=== PATIENT | female | born 1990 | race Caucasian/White ===

== ENCOUNTER 2016-12-25 18:39 | Emergency (ER) | payer OTHER ==
[~2016-12-25 18:39] MED LIST: ALBUTEROL HFA60 DOSE IN; KEFLEX500 M1 PO; PERCOCET1 TA1 PO; PRENATAL1 TAB PO
--- NOTE | 2016-12-25 20:06 | ED CLINICAL REPORT ---
Clinical Report - Physicians/Mid Levels [facility] [address] [place] [address] 12/25/2016 18:38 Patient: SOLOMON GUEVARA Time Seen: 19:57. Arrived- By private vehicle. Historian- patient. HISTORY OF PRESENT ILLNESS Chief Complaint: DENTAL PAIN. TOOTHACHE and SWELLING OF JAW / FACE sched w/ dentist in [place]. This started 1 weeks ago and is still present. Pain described as severe. The patient has had toothache. Similar symptoms previously: Several times, milder. Recent medical care: Not recently seen/assessed. REVIEW OF SYSTEMS No fever, difficulty breathing, nausea or enlarged lymph nodes. She has had a headache. PAST HISTORY See nurses notes. No history of hypertension or diabetes mellitus. Surgeries: . Cholecystectomy. Medications: PROzac Oral. Albuterol Sulfate Inhalation 2 puffs, PRN. Allergies: Ibuprofen.(angioedema). SOCIAL HISTORY Light tobacco smoker (cigarette)- less than 1/2 a pack per day. History of drug use: marijuana. No alcohol use. ADDITIONAL NOTES The nursing notes have been reviewed. PHYSICAL EXAM Vital Signs: 12/25/2016 19:36 BP: 128/78. HR: 88. RR: 18. O2 saturation: 99%. Temp: 98.4 F. Have been reviewed and appear to be correct. Appearance: Alert. No acute distress. Head: Normal external inspection. Eyes: Pupils equal, round and reactive to light. Conjunctivae and eyelids normal. ENT: Dental decay. Severe dental tenderness of a single tooth with gingival tenderness (upper left first molar) ((hole in tooth-filling missing)). Nose normal. Pharynx normal. Lips normal. No trismus present. Uvula midline. Neck: Normal inspection. Trachea midline. No adenopathy. Neck supple. No meningeal signs. CVS: Normal heart rate and rhythm. Respiratory: No respiratory distress. Breath sounds normal. Skin: Normal skin color. No rash. Normal skin turgor. Neuro: Oriented X 3. CLINICAL IMPRESSION Moderate dental pain. INSTRUCTIONS Drink plenty of fluids. Follow a soft diet. Warnings: CONTROLLED SUBSTANCE WARNINGS: The reason for controlled substance is related to an acute illness. Discussed warnings with the patient. GENERAL WARNINGS: Return or contact your physician immediately if your condition worsens or changes unexpectedly, if not improving as expected, or if other problems arise. Prescription monitor program consulted. (no narcotic rx's this year; no care plan re this). Prescription Medications: Hydrocodone/APAP 5mg / 325mg: take 1 orally every 6 hours as needed for pain. Dispense ten (10). No refill. Penicillin V 500 mg: take 1 tab orally every 6 hours for 10 days. No refills. Follow-up: Follow up with a specialist even if well. Call for the next available appointment. Reason for referral: call dentist AMANDA. Summary of care provided to patient. Understanding of the discharge instructions verbalized by patient. (Electronically signed by Amee Patel A.R.N.P. 12/25/2016 23:17)
--- NOTE | 2016-12-25 20:06 | ED NURSING NOTES ---
Clinical Report - Nurses [facility] [address] [place] [address] 12/25/2016 18:38 Patient: SOLOMON GUEVARA TRIAGE Triage time 1937. Acuity: LEVEL 4. Chief Complaint: LEFT UPPER TOOTHACHE and CHIPPED TOOTH. --19:41 Rio Erazo R.N. 19:36 12/25/16. BP: 128/78. HR: 88. RR: 18. O2 saturation: 99%. Temp: 98.4 F. Pain level now 08/02. --19:41 Rio Erazo R.N. Weight: 81.6 kg stated. Height/Length: 59 inches Per Patient. BMI: 36.4. --19:41 Rio Erazo R.N. Medications Albuterol Sulfate Inhalation 2 puffs, PRN. --19:38 Rio Erazo R.N. PROzac Oral. --19:39 Rio Erazo R.N. Allergies Ibuprofen.(angioedema) --19:38 Rio Erazo R.N. History Arrived by private vehicle. Historian: patient. Unaccompanied. Onset. (about 1 weeks ago). She has no dental appointment scheduled. 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 PAST MEDICAL HX: Immunizations: status is unknown. SOCIAL HX: Light tobacco smoker- less than 1/2 a pack per day. History of occasional drug use: marijuana. No alcohol use. FALL RISK ASSESSMENT: Fall risk assessment completed. No fall risk identified. NUTRITIONAL RISK ASSESSMENT: The nutritional risk assessment revealed no deficiencies. FUNCTIONAL ASSESSMENT: Functional assessment: no impairments noted. LEARNING NEEDS ASSESSMENT: The learning needs assessment revealed no barriers. SKIN INTEGRITY ASSESSMENT: Skin integrity risk assessment completed. No skin integrity risk identified. --19:41 Rio Erazo R.N. PROBLEMS: Depression. Torticollis. Neck Pain. Bronchitis. Dental Pain. UTI - Urinary Tract Infection. Headache. Developmental Delay. Asthma. --19:39 Rio Erazo R.N. ADDITIONAL SURGERIES: Cholecystectomy. . Traumatic brain injury. --19:39 Rio Erazo R.N. Interventions ID band on patient. --19:41 Rio Erazo R.N. PHYSICAL ASSESSMENT Ambulatory to room. GENERAL / NEURO / PSYCH: Alert. Oriented X 4. Appears in no acute distress. HEENT: Pupils equal, round and reactive to light. Pharynx within normal limits. Voice within normal limits. Dental tenderness. Dental decay. Mucous membranes are pink. RESPIRATORY: Respirations not labored. CVS: Capillary refill less than 2 seconds. SKIN: Skin is warm and dry. Normal skin turgor. --19:41 Rio Erazo R.N. NURSING PROGRESS NOTES Cold pack applied. Head of bed elevated. Reassurance given. Patient identifiers checked. Call light placed in reach. Bed placed in lowest position. Brakes of bed on. --19:41 Rio Erazo R.N. DISPOSITION / DISCHARGE Departure time: 2014. Condition at departure: improved. No learning barriers present. Discharge instructions provided and reviewed with the patient. Reviewed warnings. Reviewed medication(s). Treatments reviewed. Reviewed referrals. Reviewed diet. Activity restrictions reviewed. Patient verbalized understanding. Written instructions provided in [place]er. The patient was discharged by the physician. She was discharged home and unaccompanied at time of discharge. She left the Emergency Department ambulatory and via private vehicle. [employer] driving. --20:16 Rio Erazo R.N. 20:15 12/25/16. BP: 127/77. HR: 77. RR: 16. O2 saturation: 99%. Temp: 98 F. Pain level now 1010. --20:16 Rio Erazo R.N. Locked/Released at 12/25/2016 20:17 by Rio Erazo R.N.
--- NOTE | 2016-12-25 20:06 | ED CLINICAL REPORT ---
Clinical Report - Physicians/Mid Levels [facility] [address] [place] [address] 12/25/2016 18:38 Patient: SOLOMON GUEVARA Time Seen: 19:57. Arrived- By private vehicle. Historian- patient. HISTORY OF PRESENT ILLNESS Chief Complaint: DENTAL PAIN. TOOTHACHE and SWELLING OF JAW / FACE sched w/ dentist in [place]. This started 1 weeks ago and is still present. Pain described as severe. The patient has had toothache. Similar symptoms previously: Several times, milder. Recent medical care: Not recently seen/assessed. REVIEW OF SYSTEMS No fever, difficulty breathing, nausea or enlarged lymph nodes. She has had a headache. PAST HISTORY See nurses notes. No history of hypertension or diabetes mellitus. Surgeries: . Cholecystectomy. Medications: PROzac Oral. Albuterol Sulfate Inhalation 2 puffs, PRN. Allergies: Ibuprofen.(angioedema). SOCIAL HISTORY Light tobacco smoker (cigarette)- less than 1/2 a pack per day. History of drug use: marijuana. No alcohol use. ADDITIONAL NOTES The nursing notes have been reviewed. PHYSICAL EXAM Vital Signs: 12/25/2016 19:36 BP: 128/78. HR: 88. RR: 18. O2 saturation: 99%. Temp: 98.4 F. Have been reviewed and appear to be correct. Appearance: Alert. No acute distress. Head: Normal external inspection. Eyes: Pupils equal, round and reactive to light. Conjunctivae and eyelids normal. ENT: Dental decay. Severe dental tenderness of a single tooth with gingival tenderness (upper left first molar) ((hole in tooth-filling missing)). Nose normal. Pharynx normal. Lips normal. No trismus present. Uvula midline. Neck: Normal inspection. Trachea midline. No adenopathy. Neck supple. No meningeal signs. CVS: Normal heart rate and rhythm. Respiratory: No respiratory distress. Breath sounds normal. Skin: Normal skin color. No rash. Normal skin turgor. Neuro: Oriented X 3. CLINICAL IMPRESSION Moderate dental pain. INSTRUCTIONS Drink plenty of fluids. Follow a soft diet. Warnings: CONTROLLED SUBSTANCE WARNINGS: The reason for controlled substance is related to an acute illness. Discussed warnings with the patient. GENERAL WARNINGS: Return or contact your physician immediately if your condition worsens or changes unexpectedly, if not improving as expected, or if other problems arise. Prescription monitor program consulted. (no narcotic rx's this year; no care plan re this). Prescription Medications: Hydrocodone/APAP 5mg / 325mg: take 1 orally every 6 hours as needed for pain. Dispense ten (10). No refill. Penicillin V 500 mg: take 1 tab orally every 6 hours for 10 days. No refills. Follow-up: Follow up with a specialist even if well. Call for the next available appointment. Reason for referral: call dentist AMANDA. Summary of care provided to patient. Understanding of the discharge instructions verbalized by patient. (Electronically signed by Amee Patel A.R.N.P. 12/25/2016 23:17)
--- NOTE | 2016-12-25 20:06 | ED NURSING NOTES ---
Clinical Report - Nurses Merged With [facility] [address] [place] [address] 12/25/2016 18:38 Patient: SOLOMON GUEVARA TRIAGE Triage time 1939. Acuity: LEVEL 4. Chief Complaint: LEFT UPPER TOOTHACHE and CHIPPED TOOTH. --19:41 Rio Erazo R.N. 19:36 12/25/16. BP: 128/78. HR: 88. RR: 18. O2 saturation: 99%. Temp: 98.4 F. Pain level now 08/02. --19:41 Rio Erazo R.N. Weight: 81.6 kg stated. Height/Length: 59 inches Per Patient. BMI: 36.4. --19:41 Rio Erazo R.N. Medications Albuterol Sulfate Inhalation 2 puffs, PRN. --19:38 Rio Erazo R.N. PROzac Oral. --19:39 Rio Erazo R.N. Allergies Ibuprofen.(angioedema) --19:38 Rio Erazo R.N. History Arrived by private vehicle. Historian: patient. Unaccompanied. Onset. (about 1 weeks ago). She has no dental appointment scheduled. 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 PAST MEDICAL HX: Immunizations: status is unknown. SOCIAL HX: Light tobacco smoker- less than 1/2 a pack per day. History of occasional drug use: marijuana. No alcohol use. FALL RISK ASSESSMENT: Fall risk assessment completed. No fall risk identified. NUTRITIONAL RISK ASSESSMENT: The nutritional risk assessment revealed no deficiencies. FUNCTIONAL ASSESSMENT: Functional assessment: no impairments noted. LEARNING NEEDS ASSESSMENT: The learning needs assessment revealed no barriers. SKIN INTEGRITY ASSESSMENT: Skin integrity risk assessment completed. No skin integrity risk identified. --19:41 Rio Erazo R.N. PROBLEMS: Depression. Torticollis. Neck Pain. Bronchitis. Dental Pain. UTI - Urinary Tract Infection. Headache. Developmental Delay. Asthma. --19:39 Rio Erazo R.N. ADDITIONAL SURGERIES: Cholecystectomy. . Traumatic brain injury. --19:39 Rio Erazo R.N. Interventions ID band on patient. --19:41 Rio Erazo R.N. PHYSICAL ASSESSMENT Ambulatory to room. GENERAL / NEURO / PSYCH: Alert. Oriented X 4. Appears in no acute distress. HEENT: Pupils equal, round and reactive to light. Pharynx within normal limits. Voice within normal limits. Dental tenderness. Dental decay. Mucous membranes are pink. RESPIRATORY: Respirations not labored. CVS: Capillary refill less than 2 seconds. SKIN: Skin is warm and dry. Normal skin turgor. --19:41 Rio Erazo R.N. NURSING PROGRESS NOTES Cold pack applied. Head of bed elevated. Reassurance given. Patient identifiers checked. Call light placed in reach. Bed placed in lowest position. Brakes of bed on. --19:41 Rio Erazo R.N. DISPOSITION / DISCHARGE Departure time: 2014. Condition at departure: improved. No learning barriers present. Discharge instructions provided and reviewed with the patient. Reviewed warnings. Reviewed medication(s). Treatments reviewed. Reviewed referrals. Reviewed diet. Activity restrictions reviewed. Patient verbalized understanding. Written instructions provided in Gibral[place]arian. The patient was discharged by the physician. She was discharged home and unaccompanied at time of discharge. She left the Emergency Department ambulatory and via private vehicle. [employer] driving. --20:16 Rio Erazo R.N. 20:15 12/25/16. BP: 127/77. HR: 77. RR: 16. O2 saturation: 99%. Temp: 98 F. Pain level now 1010. --20:16 Rio Erazo R.N. Locked/Released at 12/25/2016 20:17 by Rio Erazo R.N.
--- NOTE | 2016-12-25 23:17 | ED DISCHARGE INSTRUCTIONS ---
Patient: SOLOMON GUEVARA General Instructions [facility] VisitID: [id number] [place] [address] 26y, F Registration Date/Time: 12/25/2016 Moderate dental pain. INSTRUCTIONS Drink plenty of fluids. Follow a soft diet. Warnings: CONTROLLED SUBSTANCE WARNINGS: The reason for controlled substance is related to an acute illness. Discussed warnings with the patient. GENERAL WARNINGS: Return or contact your physician immediately if your condition worsens or changes unexpectedly, if not improving as expected, or if other problems arise. Prescription monitor program consulted. (no narcotic rx's this year; no care plan re this). Prescription Medications: Hydrocodone/APAP 5mg / 325mg: take 1 orally every 6 hours as needed for pain. Dispense ten (10). No refill. Penicillin V 500 mg: take 1 tab orally every 6 hours for 10 days. No refills. Follow-up: Follow up with a specialist even if well. Call for the next available appointment. Reason for referral: call dentist AMANDA. Summary of care provided to patient. Understanding of the discharge instructions verbalized by patient. ADDITIONAL INFORMATION Dental Pain A crack or cavity in the tooth, which exposes the sensitive inner area of the tooth can cause tooth pain. An infection in the gum or the root of the tooth can cause pain and swelling. The pain is often made worse by drinking hot or cold fluids, or biting on hard foods. Pain may spread from the tooth to the ear or jaw on the same side. Home Care: Avoid hot and cold foods and liquids since your tooth may be sensitive to temperature changes. If your tooth is chipped or cracked, or if there is a large open cavity, apply OIL OF CLOVES (available dash-yne-jjcvtib in drug stores) directly to the tooth to reduce pain. Some pharmacies carry an wnum-zlf-hutymbr "toothache kit." This contains a paste, which can be applied over the exposed tooth to decrease sensitivity. A cold pack on your jaw over the sore area may help reduce pain. You may use acetaminophen (Tylenol) or ibuprofen (Motrin, Advil) to control pain, unless another medicine was prescribed. [ NOTE: If you have chronic liver or kidney disease or ever had a stomach ulcer or GI bleeding, talk with your doctor before using these medicines.] If you have signs of an infection, an antibiotic will be given. Take it as directed. Follow-Up as directed with a dentist. Your pain may go away with the treatment given. However, only a dentist can fully evaluate and treat the cause and prevent the pain from coming back again. TOOTHACHE IS A SIGN OF DISEASE IN YOUR TOOTH AND SHOULD BE EXAMINED AND TREATED BY A DENTIST. Get Prompt Medical Attention if any of the following occur: Your face becomes swollen or red Pain worsens or spreads to the neck Fever over 100.4 F (38.0 C) Unusual drowsiness; headache or stiff neck; weakness or fainting Pus drains from the tooth Difficulty swallowing or breathing Dental Cavity A dental cavity is a pit or crater in the enamel surface of the tooth. This exposes the sensitive inner layer of the tooth and causes pain. If untreated, the cavity will get bigger and may cause an infection or abscess in the root of the tooth. An infection in the tooth is a much more serious problem and may require a root canal or removal of the entire tooth. The tooth pain may be made worse by drinking hot or cold fluids. It may spread from the tooth to the ear or jaw on the same side. Home Care: Avoid hot and cold foods, and liquids since your tooth may be sensitive to temperature changes. If your tooth is chipped or cracked, or if there is a large open cavity, apply OIL OF CLOVES (available qkws-cnu-mpnkcit in drug stores) directly to the tooth to reduce pain. Some pharmacies carry an fksv-eca-hddxguh "toothache kit." This contains oil of cloves and a paste, which can be applied over the exposed tooth to decrease sensitivity. An ice pack on your jaw over the sore area may help to reduce pain. You may use acetaminophen (Tylenol) or ibuprofen (Motrin, Advil) to control pain, unless another pain medicine was prescribed. [ NOTE: If you have liver disease or ever had a stomach ulcer, talk with your doctor before using these medicines.] If you have signs of an infection, an antibiotic will be given. Take it as directed. Follow-Up with your dentist as directed. Although your pain may go away with the treatment given, only a dentist can fully evaluate and treat this problem to prevent further tooth damage. Get Prompt Medical Attention if any of the following occur: Redness or swelling of the face Pain worsens or spreads to the neck Fever over 100.5 F (38C) Unusual drowsiness; headache or stiff neck; weakness or fainting Pus drains from the tooth or gum Difficulty swallowing or breathing You have been given the following additional information: Dental Pain Dental Cavity (Electronically signed by Amee Patel A.R.N.P. 12/25/2016 23:17)
--- NOTE | 2016-12-25 23:17 | ED MAR SUMMARY ---
..... Medication Administration Record [facility] [address], [place] [id number] Patient: SOLOMON GUEVARA Visit ID: [id number] 26y, F Weight: 81.6 kg Height/Length: 59 in BMI: 36.4 ALLERGIES: Ibuprofen
--- NOTE | 2016-12-25 23:17 | ED MAR SUMMARY ---
..... Medication Administration Record [facility] [address] [place], [place] [id number] Patient: SOLOMON GUEVARA Visit ID: [id number] 26y, F Weight: 81.6 kg Height/Length: 59 in BMI: 36.4 ALLERGIES: Ibuprofen
--- NOTE | 2016-12-25 23:17 | ED MED RECONCILIATION SUMMARY ---
Patient: SOLOMON GUEVARA Medication Reconciliation Report [facility] VisitID: [id number] [address] [place] [address] 26y, F Registration Date/Time: 12/25/2016 Weight: 81.6 kg Height/Length: 59 in. BMI: 36.4 ALLERGIES: Ibuprofen The patient's Home Medications are listed below: THE FOLLOWING MEDICATIONS NEED TO BE RECONCILED: Albuterol Sulfate Inhalation 2 puffs, PRN PROzac Oral The source(s) of the original Home Medication information: Not obtained. The following Medications were given to the patient in the Emergency Department: None. The following Medications were prescribed to the patient: Hydrocodone/APAP 5mg / 325mg: take 1 orally every 6 hours as needed for pain. Dispense ten (10). No refill. -- Amee Patel A.R.N.P. Penicillin V 500 mg: take 1 tab orally every 6 hours for 10 days. No refills. -- Amee Patel A.R.N.P.
--- NOTE | 2016-12-25 23:17 | ED MED RECONCILIATION SUMMARY ---
Patient: SOLOMON GUEVARA Medication Reconciliation Report [facility] VisitID: [id number] [address] [place] [address] 26y, F Registration Date/Time: 12/25/2016 Weight: 81.6 kg Height/Length: 59 in. BMI: 36.4 ALLERGIES: Ibuprofen The patient's Home Medications are listed below: THE FOLLOWING MEDICATIONS NEED TO BE RECONCILED: Albuterol Sulfate Inhalation 2 puffs, PRN PROzac Oral The source(s) of the original Home Medication information: Not obtained. The following Medications were given to the patient in the Emergency Department: None. The following Medications were prescribed to the patient: Hydrocodone/APAP 5mg / 325mg: take 1 orally every 6 hours as needed for pain. Dispense ten (10). No refill. -- Amee Patel A.R.N.P. Penicillin V 500 mg: take 1 tab orally every 6 hours for 10 days. No refills. -- Amee Patel A.R.N.P.
--- NOTE | 2016-12-25 23:17 | ED DISCHARGE INSTRUCTIONS ---
Patient: SOLOMON GUEVARA General Instructions [facility] VisitID: [id number] [place] [address] 26y, F Registration Date/Time: 12/25/2016 Moderate dental pain. INSTRUCTIONS Drink plenty of fluids. Follow a soft diet. Warnings: CONTROLLED SUBSTANCE WARNINGS: The reason for controlled substance is related to an acute illness. Discussed warnings with the patient. GENERAL WARNINGS: Return or contact your physician immediately if your condition worsens or changes unexpectedly, if not improving as expected, or if other problems arise. Prescription monitor program consulted. (no narcotic rx's this year; no care plan re this). Prescription Medications: Hydrocodone/APAP 5mg / 325mg: take 1 orally every 6 hours as needed for pain. Dispense ten (10). No refill. Penicillin V 500 mg: take 1 tab orally every 6 hours for 10 days. No refills. Follow-up: Follow up with a specialist even if well. Call for the next available appointment. Reason for referral: call dentist AMANDA. Summary of care provided to patient. Understanding of the discharge instructions verbalized by patient. ADDITIONAL INFORMATION Dental Pain A crack or cavity in the tooth, which exposes the sensitive inner area of the tooth can cause tooth pain. An infection in the gum or the root of the tooth can cause pain and swelling. The pain is often made worse by drinking hot or cold fluids, or biting on hard foods. Pain may spread from the tooth to the ear or jaw on the same side. Home Care: Avoid hot and cold foods and liquids since your tooth may be sensitive to temperature changes. If your tooth is chipped or cracked, or if there is a large open cavity, apply OIL OF CLOVES (available toeq-mny-imzkuju in drug stores) directly to the tooth to reduce pain. Some pharmacies carry an lrry-rqo-nsutsdk "toothache kit." This contains a paste, which can be applied over the exposed tooth to decrease sensitivity. A cold pack on your jaw over the sore area may help reduce pain. You may use acetaminophen (Tylenol) or ibuprofen (Motrin, Advil) to control pain, unless another medicine was prescribed. [ NOTE: If you have chronic liver or kidney disease or ever had a stomach ulcer or GI bleeding, talk with your doctor before using these medicines.] If you have signs of an infection, an antibiotic will be given. Take it as directed. Follow-Up as directed with a dentist. Your pain may go away with the treatment given. However, only a dentist can fully evaluate and treat the cause and prevent the pain from coming back again. TOOTHACHE IS A SIGN OF DISEASE IN YOUR TOOTH AND SHOULD BE EXAMINED AND TREATED BY A DENTIST. Get Prompt Medical Attention if any of the following occur: Your face becomes swollen or red Pain worsens or spreads to the neck Fever over 100.4 F (38.0 C) Unusual drowsiness; headache or stiff neck; weakness or fainting Pus drains from the tooth Difficulty swallowing or breathing Dental Cavity A dental cavity is a pit or crater in the enamel surface of the tooth. This exposes the sensitive inner layer of the tooth and causes pain. If untreated, the cavity will get bigger and may cause an infection or abscess in the root of the tooth. An infection in the tooth is a much more serious problem and may require a root canal or removal of the entire tooth. The tooth pain may be made worse by drinking hot or cold fluids. It may spread from the tooth to the ear or jaw on the same side. Home Care: Avoid hot and cold foods, and liquids since your tooth may be sensitive to temperature changes. If your tooth is chipped or cracked, or if there is a large open cavity, apply OIL OF CLOVES (available vmfh-dzz-xszlykn in drug stores) directly to the tooth to reduce pain. Some pharmacies carry an biub-ean-vwfvnfo "toothache kit." This contains oil of cloves and a paste, which can be applied over the exposed tooth to decrease sensitivity. An ice pack on your jaw over the sore area may help to reduce pain. You may use acetaminophen (Tylenol) or ibuprofen (Motrin, Advil) to control pain, unless another pain medicine was prescribed. [ NOTE: If you have liver disease or ever had a stomach ulcer, talk with your doctor before using these medicines.] If you have signs of an infection, an antibiotic will be given. Take it as directed. Follow-Up with your dentist as directed. Although your pain may go away with the treatment given, only a dentist can fully evaluate and treat this problem to prevent further tooth damage. Get Prompt Medical Attention if any of the following occur: Redness or swelling of the face Pain worsens or spreads to the neck Fever over 100.5 F (38C) Unusual drowsiness; headache or stiff neck; weakness or fainting Pus drains from the tooth or gum Difficulty swallowing or breathing You have been given the following additional information: Dental Pain Dental Cavity (Electronically signed by Amee Patel A.R.N.P. 12/25/2016 23:17)
== END 2016-12-25 20:12 | disposition home or self-care (01) ==
LOC: ED SRH 18:39
DX: K08.9 Disorder of teeth and supporting structures, unspecified (principal); Z72.0 Tobacco use; Z79.899 Other long term (current) drug therapy; Z88.6 Allergy status to analgesic agent

== ENCOUNTER 2017-03-15 18:52 | Emergency (ER) | payer OTHER ==
--- NOTE | 2017-03-15 20:06 | ED CLINICAL REPORT ---
Clinical Report - Physicians/Mid Levels [facility] [address] [place] [address] 03/15/2017 18:53 Patient: SOLOMON GUEVARA Time Seen: 19:08. Arrived- By private vehicle. Historian- patient. HISTORY OF PRESENT ILLNESS Chief Complaint: DYSPNEA, WHEEZING and HISTORY OF ASTHMA. This started about 2 days ago and is still present. The dyspnea is described as moderate. The patient has had a cough. No sputum production, orthopnea or chest pain or discomfort. See nurses notes for current asthma threapy. Asthma triggers: air pollution, allergies, infections and irritants. Takes asthma medications. Similar symptoms previously: Many times. Recent medical care: Not recently seen/assessed. REVIEW OF SYSTEMS No sore throat, nasal discharge, sinus drainage, fever or chills. No muscle aches, headache, palpitations, calf pain or nausea. No abdominal pain, diarrhea, black stools, difficulty with urination or excessive urination. No skin rash, enlarged lymph nodes, pedal edema, vomiting or bloody stools. No joint pain. Denies current . All systems otherwise negative, except as recorded above. PAST HISTORY Problems: Depression. Torticollis. Dental Pain. Headache. Developmental Delay. Asthma. Additional Surgeries: Cholecystectomy. . Traumatic brain injury. Medications: Atrovent HFA Inhalation. Albuterol Sulfate Inhalation. Allergies: Ibuprofen.(angioedema). SOCIAL HISTORY Smoker- current status unknown. History of drug use: marijuana. No alcohol use. ADDITIONAL NOTES The nursing notes have been reviewed. PHYSICAL EXAM Vital Signs: 03/15/2017 19:07 BP: 124/79. HR: 98. RR: 22. O2 saturation: 94%. Temp: 98.3 F. Pain level now: 0/10. Have been reviewed. Appearance: Alert. Patient in mild distress. Distress appears respiratory. Eyes: Pupils equal, round and reactive to light. Eyes normal inspection. ENT: Nose normal. Neck: Normal inspection. CVS: Normal heart rate and rhythm. Heart sounds normal. Pulses normal. Respiratory: Mild respiratory distress with accessory muscle use. Speaks short phrases. Mildly prolonged expirations. Mildly decreased air movement diffusely over both lungs. Expiratory mild bilateral wheezes diffusely. No stridor, rales or rhonchi. Abdomen: Soft and nontender. Back: Normal inspection. Skin: Skin warm and dry. Normal skin color. No rash. Normal skin turgor. Extremities: Extremities exhibit normal ROM. No lower extremity edema. Neuro: (Grossly intact.). LABS, X-RAYS, AND EKG Pulse Oximetry: 03/15/2017 19:07 O2 saturation: 94%. (FIO2 - room air). Interpretation: normal. PROGRESS AND PROCEDURES Course of Care: Pt was given 2 albuterol nebs and a dose of prednisone, with improvement in sx. We have discussed the need for pt to quit smoking of all kinds. Patient counseled in person regarding the patient's stable condition, diagnosis and need for follow-up. Concerns were addressed. Old medical records reviewed. Disposition: Discharged. Condition: stable and improved. CLINICAL IMPRESSION Mild intermittent asthma with an acute exacerbation. INSTRUCTIONS Warnings: GENERAL WARNINGS: Return or contact your physician immediately if your condition worsens or changes unexpectedly, if not improving as expected, or if other problems arise. Your Current Medications: CONTINUE TAKING THE FOLLOWING MEDICATIONS: Albuterol Sulfate Inhalation. Atrovent HFA Inhalation. Prescription Medications: Prednisone 20 mg: take 3 orally every day for 4 days. Dispense sufficient quantity. No refills. Follow-up: Follow up with your doctor in five days if not better. Understanding of the discharge instructions verbalized by patient. (Electronically signed by Abi Dawson MD 03/21/2017 13:33)
--- NOTE | 2017-03-15 20:06 | ED NURSING NOTES ---
Clinical Report - Nurses [facility] [address] [place] [address] 03/15/2017 18:53 Patient: SOLOMON GUEVARA TRIAGE Triage time 19:05. Acuity: LEVEL 3. Chief Complaint: WHEEZING. Alert. No acute distress. SEPSIS SCREEN: Sepsis Screen. Negative (no infection suspected/documented). RADHA COMA SCORE: Radha Coma Scale: 15- eyes open spontaneously (4); best verbal response- oriented x 4 (5); best motor response- obeys commands (6). --19:15 Mandi Padilla R.N. 19:07 03/15/17. BP: 124/79 taken on the left arm, while sitting. HR: 98. RR: 22. O2 saturation: 94%. Temp: 98.3 F. Pain level now: 0/10. --19:15 Mandi Padilla R.N. Weight: 91.6 kg stated. Height/Length: 59 inches Per Patient. BMI: 40.8. --19:14 Mandi Padilla R.N. Medications Albuterol Sulfate Inhalation. --19:10 Mandi Padilla R.N. Atrovent HFA Inhalation. --19:10 Mandi Padilla R.N. Allergies Ibuprofen.(angioedema) --20:47 Mandi Padilla R.N. History Arrived by private vehicle. Historian: patient. Primary physician (Dr Duane Ortiz). Onset. (two days ago). ( Patient states "I've had asthma all my life. My albuterol hasn't been working for very long over the past 2 days and I've been wheezing a lot"). 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 PAST MEDICAL HX: Immunizations: status is unknown. Denies current . SOCIAL HX: Current some days smoker. History of heavy drug use: marijuana. No alcohol use. FALL RISK ASSESSMENT: Fall risk assessment completed. No fall risk identified. NUTRITIONAL RISK ASSESSMENT: The nutritional risk assessment revealed no deficiencies. FUNCTIONAL ASSESSMENT: Functional assessment: no impairments noted. LEARNING NEEDS ASSESSMENT: The learning needs assessment revealed no barriers. SKIN INTEGRITY ASSESSMENT: Skin integrity risk assessment completed. No skin integrity risk identified. --19:15 Mandi Padilla R.N. PROBLEMS: Depression. Torticollis. Neck Pain. Bronchitis. Dental Pain. UTI - Urinary Tract Infection. Headache. Developmental Delay. Asthma. --19:11 Mandi Padilla R.N. ADDITIONAL SURGERIES: Cholecystectomy. . Traumatic brain injury. --19:11 Mandi Padilla R.N. Interventions ID band on patient. To treatment room. --19:15 Mandi Padilla R.N. PHYSICAL ASSESSMENT 19:18 03/15/17. Ambulatory to room. GENERAL / NEURO / PSYCH: Alert. Oriented X 4. Appears in no acute distress. HEENT: Mucous membranes are pink. RESPIRATORY: Mild respiratory distress. Respirations not labored. Nonproductive cough. Chest nontender. Expiratory bilateral wheezes diffusely. CVS: Capillary refill less than 2 seconds. GI / : Abdomen soft and nontender. Bowel sounds within normal limits. SKIN: Skin is warm and dry. Normal skin turgor. --19:18 Mandi Padilla R.N. NURSING PROGRESS NOTES 19:19 03/15/17. Oxygen administered at 2 liters. Pulse oximeter and NIBP monitor placed on patient. Two patient identifiers checked. Call light placed in reach. Side rails up x 1. Bed placed in lowest position. Brakes of bed on. Patient ready for evaluation- chart flagged and notification provided. Patient informed about reason for wait and about plan of care. --19:19 Mandi Padilla R.N. 19:19. ( RT in room). --19:27 Mandi Padilla R.N. 19:29 03/15/2017 Albuterol Neb TX Nebulizer 2.5 mg given. Given by the respiratory therapist. Allergies verified and confirmed 5 rights. --19:39 Mandi Padilla R.N. 20:43 03/15/2017 Prednisone PO Tablets 60 mg given. Allergies verified and confirmed 5 rights. --20:43 Mandi Padilla R.N. 19:30 03/15/17. BP: 117/74. HR: 94. RR: 18. O2 saturation: 94%. Temp: deferred. Pain level now: 0/10. --20:54 Mandi Padilla R.N. 20:00 03/15/2017 Albuterol Neb TX Response: no adverse reaction symptoms have improved the patient feels better. (Lungs clear. No wheezes noted.). 03/15/2017 20:00 BP: 119/66. HR: 95. RR: 16. O2 saturation: 94%. Pain level now: 0/10. --20:57 Mandi Padilla R.N. DISPOSITION / DISCHARGE 20:46 03/15/17. No learning barriers present. Discharge instructions provided and reviewed with the patient. Reviewed warnings. Reviewed medication(s). Treatments reviewed. Patient verbalized understanding. Written instructions provided in Sami. The patient was discharged home. She left the Emergency Department ambulatory and via private vehicle. Chemical Etching Processor driving. --20:46 Mandi Padilla R.N. 20:45 03/15/17. BP: 127/71. HR: 89. RR: 16. O2 saturation: 100% on nasal cannula at 3 liters/minute. Temp: deferred. Pain level now: 0/10. --20:46 Mandi Padilla R.N. Locked/Released at 03/15/2017 20:57 by Mandi Padilla R.N.
--- NOTE | 2017-03-15 20:06 | ED NURSING NOTES ---
Clinical Report - Nurses [facility] [address] [place] [address] 03/15/2017 18:53 Patient: SOLOMON GUEVARA TRIAGE Triage time 19:05. Acuity: LEVEL 3. Chief Complaint: WHEEZING. Alert. No acute distress. SEPSIS SCREEN: Sepsis Screen. Negative (no infection suspected/documented). RADHA COMA SCORE: Radha Coma Scale: 15- eyes open spontaneously (4); best verbal response- oriented x 4 (5); best motor response- obeys commands (6). --19:15 Mandi Padilla R.N. 19:07 03/15/17. BP: 124/79 taken on the left arm, while sitting. HR: 98. RR: 22. O2 saturation: 94%. Temp: 98.3 F. Pain level now: 0/10. --19:15 Mandi Padilla R.N. Weight: 91.6 kg stated. Height/Length: 59 inches Per Patient. BMI: 40.8. --19:14 Mandi Padilla R.N. Medications Albuterol Sulfate Inhalation. --19:10 Mandi Padilla R.N. Atrovent HFA Inhalation. --19:10 Mandi Padilla R.N. Allergies Ibuprofen.(angioedema) --20:47 Mandi Padilla R.N. History Arrived by private vehicle. Historian: patient. Primary physician (Dr Duane Ortiz). Onset. (two days ago). ( Patient states "I've had asthma all my life. My albuterol hasn't been working for very long over the past 2 days and I've been wheezing a lot"). 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 PAST MEDICAL HX: Immunizations: status is unknown. Denies current . SOCIAL HX: Current some days smoker. History of heavy drug use: marijuana. No alcohol use. FALL RISK ASSESSMENT: Fall risk assessment completed. No fall risk identified. NUTRITIONAL RISK ASSESSMENT: The nutritional risk assessment revealed no deficiencies. FUNCTIONAL ASSESSMENT: Functional assessment: no impairments noted. LEARNING NEEDS ASSESSMENT: The learning needs assessment revealed no barriers. SKIN INTEGRITY ASSESSMENT: Skin integrity risk assessment completed. No skin integrity risk identified. --19:15 Mandi Padilla R.N. PROBLEMS: Depression. Torticollis. Neck Pain. Bronchitis. Dental Pain. UTI - Urinary Tract Infection. Headache. Developmental Delay. Asthma. --19:11 Mandi Padilla R.N. ADDITIONAL SURGERIES: Cholecystectomy. . Traumatic brain injury. --19:11 Mandi Padilla R.N. Interventions ID band on patient. To treatment room. --19:15 Mandi Padilla R.N. PHYSICAL ASSESSMENT 19:18 03/15/17. Ambulatory to room. GENERAL / NEURO / PSYCH: Alert. Oriented X 4. Appears in no acute distress. HEENT: Mucous membranes are pink. RESPIRATORY: Mild respiratory distress. Respirations not labored. Nonproductive cough. Chest nontender. Expiratory bilateral wheezes diffusely. CVS: Capillary refill less than 2 seconds. GI / : Abdomen soft and nontender. Bowel sounds within normal limits. SKIN: Skin is warm and dry. Normal skin turgor. --19:18 Mandi Padilla R.N. NURSING PROGRESS NOTES 19:19 03/15/17. Oxygen administered at 2 liters. Pulse oximeter and NIBP monitor placed on patient. Two patient identifiers checked. Call light placed in reach. Side rails up x 1. Bed placed in lowest position. Brakes of bed on. Patient ready for evaluation- chart flagged and notification provided. Patient informed about reason for wait and about plan of care. --19:19 Mandi Padilla R.N. 19:19. ( RT in room). --19:27 Mandi Padilla R.N. 19:29 03/15/2017 Albuterol Neb TX Nebulizer 2.5 mg given. Given by the respiratory therapist. Allergies verified and confirmed 5 rights. --19:39 Mandi Padilla R.N. 20:43 03/15/2017 Prednisone PO Tablets 60 mg given. Allergies verified and confirmed 5 rights. --20:43 Mandi Padilla R.N. 19:30 03/15/17. BP: 117/74. HR: 94. RR: 18. O2 saturation: 94%. Temp: deferred. Pain level now: 0/10. --20:54 Mandi Padilla R.N. 20:00 03/15/2017 Albuterol Neb TX Response: no adverse reaction symptoms have improved the patient feels better. (Lungs clear. No wheezes noted.). 03/15/2017 20:00 BP: 119/66. HR: 95. RR: 16. O2 saturation: 94%. Pain level now: 0/10. --20:57 Mandi Padilla R.N. DISPOSITION / DISCHARGE 20:46 03/15/17. No learning barriers present. Discharge instructions provided and reviewed with the patient. Reviewed warnings. Reviewed medication(s). Treatments reviewed. Patient verbalized understanding. Written instructions provided in Nepali. The patient was discharged home. She left the Emergency Department ambulatory and via private vehicle. Diamond Driller driving. --20:46 Mandi Padilla R.N. 20:45 03/15/17. BP: 127/71. HR: 89. RR: 16. O2 saturation: 100% on nasal cannula at 3 liters/minute. Temp: deferred. Pain level now: 0/10. --20:46 Mandi Padilla R.N. Locked/Released at 03/15/2017 20:57 by Mandi Padilla R.N.
--- NOTE | 2017-03-15 20:06 | ED ORDER SUMMARY ---
..... Patient: SOLOMON GUEVARA OrderSheet [facility] VisitID: [id number] [address] [place] [address] 26y, F Registration Date/Time: 03/15/2017 ORDER SHEET Weight: 91.6 kg (stated) Allergies: Ibuprofen GENERAL ORDERS: MEDICATION ORDERS: Albuterol Neb Tx 2 unit doses (NOW) (19:39 03/15/2017 RMarsden R.N. per protocol) (19:39 RMarsden R.N.) Prednisone PO 60 mg (NOW) (19:44 03/15/2017 Padmini ESPINOZA) (Ack 20:38 RMarsden R.N.) (20:43 RMarsden R.N.) IV FLUIDS: ORDER SHEET NOTES: [Electronically signed by Mandi Padilla R.N. (20:57 03/15/2017)] [Electronically signed by Abi Dwason MD (13:33 03/21/2017)] [Electronically locked/signed by Mandi Padilla R.N. (20:57 03/15/2017)]
--- NOTE | 2017-03-15 20:06 | ED ORDER SUMMARY ---
..... Patient: SOLOMON GUEVARA OrderSheet [facility] VisitID: [id number] [address] [place] [address] 26y, F Registration Date/Time: 03/15/2017 ORDER SHEET Weight: 91.6 kg (stated) Allergies: Ibuprofen GENERAL ORDERS: MEDICATION ORDERS: Albuterol Neb Tx 2 unit doses (NOW) (19:39 03/15/2017 RMarsden R.N. per protocol) (19:39 RMarsden R.N.) Prednisone PO 60 mg (NOW) (19:44 03/15/2017 Padmini ESPINOZA) (Ack 20:38 RMarsden R.N.) (20:43 RMarsden R.N.) IV FLUIDS: ORDER SHEET NOTES: [Electronically signed by Mandi Padilla R.N. (20:57 03/15/2017)] [Electronically signed by Abi Dawson MD (13:33 03/21/2017)] [Electronically locked/signed by Mandi Padilla R.N. (20:57 03/15/2017)]
--- NOTE | 2017-03-21 13:34 | ED DISCHARGE INSTRUCTIONS ---
Patient: SOLOMON GUEVARA General Instructions [facility] VisitID: [id number] [place] [address] 26y, F Registration Date/Time: 03/15/2017 Mild intermittent asthma with an acute exacerbation. INSTRUCTIONS Warnings: GENERAL WARNINGS: Return or contact your physician immediately if your condition worsens or changes unexpectedly, if not improving as expected, or if other problems arise. Your Current Medications: CONTINUE TAKING THE FOLLOWING MEDICATIONS: Albuterol Sulfate Inhalation. Atrovent HFA Inhalation. Prescription Medications: Prednisone 20 mg: take 3 orally every day for 4 days. Dispense sufficient quantity. No refills. Follow-up: Follow up with your doctor in five days if not better. Understanding of the discharge instructions verbalized by patient. ADDITIONAL INFORMATION Asthma [Adult] Asthma is a disease where the small air passages within the lung go into spasm and restrict the flow of air. Inflammation and swelling of the airways cause further restriction. During an acute asthma attack, these factors cause difficulty breathing, wheezing, cough and chest tightness. An asthma attack can be triggered by many things. Common triggers include the common cold, bronchitis, pneumonia, irritants such as smoke or pullutants in the air, emotional upset and heavy exercise. Inmany adults with asthma, allergies todust, mold, pollen and animal dander can cause an asthma attack. Skipping doses of daily asthma medicine can also bring on an asthma attack. Asthma can be controlled with proper medicines and decreased exposure to known allergens. Home Care: Take prescribed medicine exactly at the times advised. If you have a hand-held inhaler or aerosol breathing medicine, do not use it more than once every four hours, unless told to do so. (If you need this medicine more than every four hours, you may need to return to the Emergency Room.) If prescribed an antibiotic or prednisone, take all of the medicine even if you are feeling better after a few days. Do not smoke. Avoid being exposed to the smoke of others. Some persons with asthma have worsening of their symptoms when they take aspirin and non-steroidal medicines like ibuprofen (Motrin, Advil) and naproxen (Aleve, Naprosyn). Talk to your doctor if you think this may apply to you. Acetaminophen (Tylenol)should be safe to use. Follow Up with your doctor, or as advised by our staff. Always bring all of your current medicines with you for your doctor to see. If you do not already have one, talk to your doctor about developing a personalized "Asthma Action Plan." [NOTE: A pneumococcal vaccine and yearly flu shot (every fall) are recommended. Ask your doctor about this.] Get Prompt Medical Attention if any of the following occur: Increased wheezing or shortness of breath Need to use your inhalers more often than usual without relief Fever of 100.4F (38C) or higher, or as directed by your healthcare provider Coughing up lots of dark-colored or bloody sputum (mucus) Chest pain with each breath You do not start to improve within 24 hours Call 911 If Any Of The Following Occur : Trouble walking or talking because of shortness of breath If you use a peak flow meter andyou are still in the red zone (less than 50 percent) 15 minutes after using inhaler medication Lips or fingernails turning gallo or blue You have been given the following additional information: Asthma, Acute (Adult) (Electronically signed by Abi Dawson MD 03/21/2017 13:33)
--- NOTE | 2017-03-21 13:34 | ED MAR SUMMARY ---
..... Medication Administration Record [facility] [address] [place] [address] Patient: SOLOMON GUEVARA Visit ID: [id number] 26y, F Weight: 91.6 kg Height/Length: 59 in BMI: 40.8 ALLERGIES: Ibuprofen Given 19:29 03/15/2017 Mandi Padilla, RBarbNBarb Medication Administered: ALBUTEROL [NEB TX], Dose: 2.5 mg Nebulizer Neb TX. Medication Ordered: Albuterol Neb Tx 2 unit doses (NOW). Given 20:43 03/15/2017 Mandi Padilla, RBarbN. Medication Administered: PREDNISONE [PO], Dose: 60 mg Tablets PO. Medication Ordered: Prednisone PO 60 mg (NOW).
--- NOTE | 2017-03-21 13:34 | ED MED RECONCILIATION SUMMARY ---
Patient: SOLOMON GUEVARA Medication Reconciliation Report [facility] VisitID: [id number] [address] [place] [address] 26y, F Registration Date/Time: 03/15/2017 Weight: 91.6 kg Height/Length: 59 in. BMI: 40.8 ALLERGIES: Ibuprofen The patient's Home Medications are listed below: CONTINUE TAKING THE FOLLOWING MEDICATIONS: Albuterol Sulfate Inhalation Atrovent HFA Inhalation The source(s) of the original Home Medication information: Not obtained. The following Medications were given to the patient in the Emergency Department: Albuterol [Neb Tx] Neb TX 2.5 mg, administered: 03/15/2017 7:29:00 PM Prednisone [PO] PO 60 mg, administered: 03/15/2017 8:43:00 PM The following Medications were prescribed to the patient: Prednisone 20 mg: take 3 orally every day for 4 days. Dispense sufficient quantity. No refills. -- Abi Dawson MD
--- NOTE | 2017-03-21 13:34 | ED MED RECONCILIATION SUMMARY ---
Patient: SOLOMON GUEVARA Medication Reconciliation Report [facility] VisitID: [id number] [address] [place] [address] 26y, F Registration Date/Time: 03/15/2017 Weight: 91.6 kg Height/Length: 59 in. BMI: 40.8 ALLERGIES: Ibuprofen The patient's Home Medications are listed below: CONTINUE TAKING THE FOLLOWING MEDICATIONS: Albuterol Sulfate Inhalation Atrovent HFA Inhalation The source(s) of the original Home Medication information: Not obtained. The following Medications were given to the patient in the Emergency Department: Albuterol [Neb Tx] Neb TX 2.5 mg, administered: 03/15/2017 7:29:00 PM Prednisone [PO] PO 60 mg, administered: 03/15/2017 8:43:00 PM The following Medications were prescribed to the patient: Prednisone 20 mg: take 3 orally every day for 4 days. Dispense sufficient quantity. No refills. -- Abi Dawson MD
--- NOTE | 2017-03-21 13:34 | ED MAR SUMMARY ---
..... Medication Administration Record [facility] [address] [place] [address] Patient: SOLOMON GUEVARA Visit ID: [id number] 26y, F Weight: 91.6 kg Height/Length: 59 in BMI: 40.8 ALLERGIES: Ibuprofen Given 19:29 03/15/2017 Mandi Padilla, RBarbNBarb Medication Administered: ALBUTEROL [NEB TX], Dose: 2.5 mg Nebulizer Neb TX. Medication Ordered: Albuterol Neb Tx 2 unit doses (NOW). Given 20:43 03/15/2017 Mandi Padilla, RBarbN. Medication Administered: PREDNISONE [PO], Dose: 60 mg Tablets PO. Medication Ordered: Prednisone PO 60 mg (NOW).
== END 2017-03-15 20:46 | disposition home or self-care (01) ==
LOC: ED SRH 18:52
DX: J45.21 Mild intermittent asthma with (acute) exacerbation (principal); Z79.51 Long term (current) use of inhaled steroids; Z79.1 Long term (current) use of non-steroidal anti-inflammatories (NSAID)

== ENCOUNTER 2017-03-30 18:24 | Emergency (ER) | payer OTHER ==
--- NOTE | 2017-03-30 19:53 | DIAGNOSTIC IMAGING REPORT ---
PROCEDURE: XR CHEST 1 VIEW INDICATION: CHEST PAIN TECHNIQUE: Portable AP view 06:48 p.m. COMPARISON: Chest 05/09/2016 FINDINGS: Lungs are clear. Heart and mediastinum are normal. Thorax is normal. IMPRESSION: 1. Negative chest.
--- NOTE | 2017-03-30 19:58 | ED ORDER SUMMARY ---
..... Patient: SOLOMON GUEVARA OrderSheet [facility] VisitID: [id number] [address] [place] [address] 26y, F Registration Date/Time: 03/30/2017 ORDER SHEET Weight: 87.0 kg (stated) Allergies: Ibuprofen GENERAL ORDERS: Top Former (Continuous) (18:40 03/30/2017 HBivens A.R.N.P.) (Ack 18:46 LNations ER Tech1) Chest 1V Urgent (18:40 03/30/2017 HBivens A.R.N.P.) (Ack 18:46 LNations ER Tech1) CBC w Diff Urgent (18:40 03/30/2017 HBivens A.R.N.P.) (Ack 18:46 LNations ER Tech1) CMP Urgent (18:40 03/30/2017 HBivens A.R.N.P.) (Ack 18:46 LNations ER Tech1) D-Dimer Urgent (18:40 03/30/2017 HBivens A.R.N.P.) (Ack 18:46 LNations ER Tech1) CPK Urgent (18:40 03/30/2017 HBivens A.R.N.P.) (Ack 18:46 LNations ER Tech1) Troponin-I Urgent (18:40 03/30/2017 HBivens A.R.N.P.) (Ack 18:46 LNations ER Tech1) Serum Qualitative Urgent (18:40 03/30/2017 HBivens A.R.N.P.) (Ack 18:46 LNations ER Tech1) EKG - ER Stat (18:40 03/30/2017 HBivens A.R.N.P.) (18:45 PWeiler ER Tech1) UA-Culture if indicated Urgent (18:54 03/30/2017 SSambou R.N. verbal order read back to HBivens A.R.N.P.) (18:55 SSambou R.N.) MEDICATION ORDERS: Hydrocodone-APAP PO 5/325 mg (NOW, HIGH ALERT MEDICATION) (19:57 03/30/2017 HBivens A.R.N.P.) (20:01 Bello R.N.) IV FLUIDS: IV Saline Lock (18:40 03/30/2017 Clarice A.R.N.P.) (18:50 Bello R.N.) ORDER SHEET NOTES: [Electronically signed by Sheriff Donis Banks (20:14 03/30/2017)] [Electronically signed by Sandra WestonNBarbPBarb (21:20 03/30/2017)] [Electronically locked/signed by Sheriff Donis Banks (20:14 03/30/2017)]
--- NOTE | 2017-03-30 19:58 | ED CLINICAL REPORT ---
Clinical Report - Physicians/Mid Levels [facility] [address] [place] [address] 03/30/2017 18:24 Patient: SOLOMON GUEVARA Time Seen: 1830; upon arrival, initial patient contact, initial documentation, patient care assumed. Arrived- By private vehicle. Historian- patient. HISTORY OF PRESENT ILLNESS Chief Complaint: CHEST PAIN and DISCOMFORT. This started about 1 months ago or longer and is still present. It has been constant. At its maximum, severity described as severe. When seen in the E.D., severity described as severe. Modifying factors- worsened by movement and deep breaths. Not relieved by anything. It is described as sharp, "pain" and well localized and it is described as located in the central chest and left chest area. No radiation. No nausea, vomiting, difficulty breathing or diaphoresis. No additional chest pain. Similar symptoms previously: Occasionally, milder. ( says she went to [facility] about a month ago for same thing, was told she had blood clot in her heart, was dc home with some pill that didn't help). Recent medical care: Not recently seen/assessed. REVIEW OF SYSTEMS All systems otherwise negative, except as recorded above. PAST HISTORY See nurses notes. PROBLEMS: Depression. Torticollis. Neck Pain. Bronchitis. Dental Pain. UTI - Urinary Tract Infection. Headache. Developmental Delay. Asthma. --18:31 Sheriff Jocelyn, RBarbN. SOCIAL HISTORY Light tobacco smoker. History of occasional drug use: marijuana. No alcohol use. No recent travel. Is a local resident. FAMILY HISTORY Negative. ADDITIONAL NOTES The nursing notes have been reviewed with agreement regarding the chief complaint, HPI, ROS, PMH and patient medications and allergies. PHYSICAL EXAM Vital Signs: 03/30/2017 18:29 BP: 116/66. HR: 95. RR: 18. O2 saturation: 97%. Temp: 98.2 F. Pain level now: 10/10. Have been reviewed as normal and appear to be correct. Appearance: Alert. Oriented X3. No acute distress. Eyes: Pupils equal, round and reactive to light. Eyes normal inspection. Neck: Normal inspection. Neck supple. CVS: Normal heart rate and rhythm. Heart sounds normal. Pulses normal. Respiratory: No respiratory distress. Chest tender. Chest pain reproducible with palpation of the costal cartilage, costochondral junction, sternum and anterior chest wall, with movement of the trunk and with deep breathing. Breath sounds normal. Abdomen: Mildly obese. Back: Normal external inspection. Skin: Skin warm and dry. Normal skin color. No rash. Normal skin turgor. Extremities: Extremities exhibit normal ROM. No lower extremity edema. Neuro: Oriented X 3. No motor deficit. No sensory deficit. LABS, X-RAYS, AND EKG EKG: EKG time: (1844). No acute process. No acute ischemia. Normal EKG. Rate: 90. Normal EKG. The study has been interpreted contemporaneously by me (and dr arellano). The EKG appears to be a good tracing. Interpretation time: 1844. Chest X-ray: Normal Chest X-Ray. (IMPRESSION: 1. Negative chest. Electronically Final signed by:Carlos Herrera MD 03/30/2017 7:54:06 PM). The X-rays were interpreted by the radiologist and contemporaneously by me. Interpretation time: 19:57. Laboratory Tests: UA-Culture if indicated: (RAJ: 03/30/2017 18:52) ( MsgRcvd 03/30/2017 19:18) Final results Test Result Flag Units (Reference) URINE COLOR YELLOW URINE APPEARANCE SL CLOUDY URINE GLUCOSE NEGATIVE (NEGATIVE) URINE BILIRUBIN NEGATIVE (NEGATIVE) URINE KETONE NEGATIVE (NEGATIVE) URINE SPECIFIC GRAVITY 1.020 (1.010-1.030) URINE PH 6.5 (5.0-8.0) URINE PROTEIN NEGATIVE (NEGATIVE) URINE UROBILINOGEN 0.2 EU/dL (0.2-1.0) URINE NITRITE NEGATIVE (NEGATIVE) URINE BLOOD NEGATIVE (NEGATIVE) URINE LEUK ESTERASE NEGATIVE (NEGATIVE) URINE RBC 0-1 rbc/hpf (0-1) URINE WBC 1-3 wbc/hpf (0-1) URINE EPITHELIAL CELLS 3-5 EPI/hpf (0-5) URINE BACTERIA FEW (1+) (NONE SEEN) URINE COMMENT CULT NOT INDICATED URINE CULTURES ARE SET-UP BASED ON THE FOLLOWING CRITERIA:POSITIVE NITRITEPOSITIVE LEUKOCYTE ESTERASEGREATER THAN 10 WHITE BLOOD CELLSMODERATE (2+) OR GREATER BACTERIA Serum Qualitative: (RAJ: 03/30/2017 18:43) ( [facility] 03/30/2017 19:02) Final results Test Result Flag Units (Reference) , SERUM NEGATIVE CBC w Diff: (RAJ: 03/30/2017 18:43) ( [facility] 03/30/2017 18:56) Final results Test Result Flag Units (Reference) WHITE BLOOD COUNT 14.2 H K/uL (4.5-11.5) RED BLOOD COUNT 4.88 M/uL (4.00-5.20) HEMOGLOBIN 13.7 gm/dL (12.0-16.0) HEMATOCRIT 41.3 % (36.0-46.0) MEAN CELL VOLUME 85 fL (80-100) MEAN CORPUSCULAR HGB 28 pg (26-34) MEAN CORPUSCULAR HGB CONC 33 g/dL (31-37) RED CELL DISTRIBUTION WIDTH 15.3 H % (11.6-14.8) PLATELET COUNT 443 H K/uL (150-400) NEUTROPHIL % 58.6 % (50-75) LYMPH % 31.8 % (25-40) MONO % 5.8 % (3-14) EOSINOPHIL % 2.7 % (0-4) BASOPHIL % 1.1 % (0-2) [id number]: (RAJ: 03/30/2017 18:43) ( [facility] 03/30/2017 19:12) Final results Test Result Flag Units (Reference) D-DIMER QUANTITATIVE < 0.27 L ug/mLFEU (0.27-0.52) The primary value of this quantitative assay relates toits negative predictive value (i.e. exclusion) of pulmonaryembolism/deep vein thrombosis/DIC.Elevated levels of d-dimer may also occur with:, age, cancer, inflammation, liver disease,post-op, infection, hematoma, coronary disease, peripheralarteriopathy, bleeding disorders and thrombolytic treatment.Results should be correlated with other clinical andradiological data.Testing Methodology: Latex Immunoassay CMP: (RAJ: 03/30/2017 18:43) ( MsgRcvd 03/30/2017 19:12) Final results Test Result Flag Units (Reference) GLUCOSE 123 H mg/dL (70-110) BUN 20 H mg/dL (7-18) CREATININE 0.9 mg/dL (0.6-1.3) Estimated GFR >60 mL/min Estimated GFR- >60 mL/min Note: Persistent reduction over 3 months in eGFR<60 mL/min/1.73 m2 defines CKD. Patients with eGFR values>=60 mL/min/1.73 m2 may also have CKD if evidence ofpersistent proteinuria. Additional information may be foundat www.kidney.org. SODIUM 142 mmol/L (136-145) POTASSIUM 4.1 mmol/L (3.5-5.1) CHLORIDE 104 mmol/L (98-107) CARBON DIOXIDE 26 mmol/L (21-32) CALCIUM 9.1 mg/dL (8.5-10.1) TOTAL PROTEIN 7.8 g/dL (6.4-8.2) ALBUMIN 3.6 g/dL (3.3-5.0) BILIRUBIN, TOTAL 0.2 mg/dL (0.0-1.0) ALKALINE PHOSPHATASE 69 U/L (46-116) AST (SGOT) 7 L U/L (15-37) ALT (SGPT) 23 U/L (12-78) CPK 101 U/L (24-260) TROPONIN I <0.05 ng/mL (0.00-1.5) TROPONIN REFERENCE RANGE:<0.1 NEGATIVE0.1-1.5 INDETERMINANT>1.5 POSITIVE . PROGRESS AND PROCEDURES Patient counseled in person regarding the patient's stable condition, test results and diagnosis. 19:57. Differential Diagnosis: I considered chest wall pain, muscle strain, costochondritis, myositis, pleurisy, myocardial infarction, intermediate coronary syndrome, unstable angina, angina, mitral valve prolapse, pericarditis, pulmonary embolism, gastroesophageal reflux disease, esophagitis and esophageal spasm as a possible cause of chest pain in this patient. This is a partial list of diagnoses considered. Above considerations are based on history, physical exam, reassessment, laboratory data, X-Ray data and EKG. Differential diagnosis was discussed with patient. Disposition: Discharged home in good and improved condition (19:58). Condition: good and stable. CLINICAL IMPRESSION Costochondritis .12 lead EKG performed. INSTRUCTIONS Warnings: GENERAL WARNINGS: Return or contact your physician immediately if your condition worsens or changes unexpectedly, if not improving as expected, or if other problems arise. SPECIFICALLY, return if you develop chest, neck, jaw, shoulder, arm, or back pain, difficulty breathing, a fluttering sensation in your chest, lightheadedness, fainting, excessive fatigue, or sudden sweating. Prescription Medications: Tenstrike 5 mg / 325 mg tablets: take 1 orally every 6 hours as needed for pain. Dispense five (5). No refill. Follow-up: Follow up with your doctor in about two days even if well. Call for an appointment. Summary of care provided to patient. Understanding of the discharge instructions verbalized by patient. (Electronically signed by Sandra Weston A.R.N.P. 03/30/2017 21:20)
--- NOTE | 2017-03-30 19:58 | ED NURSING NOTES ---
Clinical Report - Nurses [facility] [address] [place] [address] 03/30/2017 18:24 Patient: SOLOMON GUEVARA TRIAGE Triage time 18:29. Acuity: LEVEL 3. Chief Complaint: CHEST PAIN. --18:34 Sheriff Banks R.N. 18:29 03/30/17. BP: 116/66. HR: 95. RR: 18. O2 saturation: 97%. Temp: 98.2 F. Pain level now: 08/02. --18:34 Sheriff Banks R.N. Weight: 87 kg stated. Height/Length: 59 inches Per Patient. BMI: 38.8. --18:33 Sheriff Banks R.N. Medications Albuterol Sulfate Inhalation. Atrovent HFA Inhalation. --18:31 Sheriff Banks R.N. Allergies Ibuprofen.(angioedema) --18:31 Sheriff Banks R.N. History Arrived by private vehicle. Historian: patient. Accompanied by family. Onset. (1 months ago). ( Chest pain started getting worst this morning. [place] like someone punching me really hard on the chest.). SURGERY HX: . SOCIAL HX: Smoker- current status unknown (3 cigarettes daily.). History of drug use: marijuana. No alcohol use. FALL RISK ASSESSMENT: Fall risk assessment completed. No fall risk identified. NUTRITIONAL RISK ASSESSMENT: The nutritional risk assessment revealed no deficiencies. FUNCTIONAL ASSESSMENT: Functional assessment: no impairments noted. LEARNING NEEDS ASSESSMENT: The learning needs assessment revealed no barriers. SKIN INTEGRITY ASSESSMENT: Skin integrity risk assessment completed. No skin integrity risk identified. --18:34 Sheriff Banks R.N. PROBLEMS: Depression. Torticollis. Neck Pain. Bronchitis. Dental Pain. UTI - Urinary Tract Infection. Headache. Developmental Delay. Asthma. --18:31 Sheriff Banks R.N. Interventions ID band on patient. --18:34 Sambou, Abrasive Band Winder, R.N. PHYSICAL ASSESSMENT Ambulatory to room. GENERAL / NEURO / PSYCH: Alert. Oriented X 4. Appears in no acute distress. HEENT: Mucous membranes are pink. RESPIRATORY: Respirations not labored. CVS: Pulses within normal limits. Capillary refill less than 2 seconds. SKIN: Skin is warm and dry. --18:35 Sheriff Banks R.N. NURSING PROGRESS NOTES Patient gowned. Head of bed elevated. Two patient identifiers checked. Call light placed in reach. Side rails up. Bed placed in lowest position. Brakes of bed on. --18:35 Sheriff Banks R.N. 18:50 03/30/2017 Site #1 started via IV in the right antecubital space with an 20g angiocath, with aseptic technique and good blood return; one attempt. Blood drawn: rainbow set. Labeled in the presence of the patient and sent to the lab. Saline lock flushed with 10 mL saline. --18:50 Sheriff Banks R.N. ( urine collected and sent to lab.). --18:56 Natasha Funez R.N. 20:01 03/30/2017 Hydrocodone-APAP (Hydrocodone-Acetaminophen) PO 5/325 mg Tablets 1 tab given. Allergies verified, confirmed 5 rights and sedative warning given to the patient. --20:01 Sheriff Banks R.N. DISPOSITION / DISCHARGE Condition at departure: stable. No learning barriers present. Discharge instructions provided and reviewed with the patient. Reviewed medication(s) side effects, precautions, dosing and course information. Prescription(s) given to the patient. Patient verbalized understanding. Written instructions provided in [place]. The patient was discharged by the physician dental front office assistant. She was discharged home and accompanied by family. She left the Emergency Department ambulatory and via private vehicle. Family member driving. --20:14 Sheriff Banks R.N. 20:13 03/30/17. BP: 92/51. HR: 83. RR: 18. O2 saturation: 95%. Temp: 98.8 F. Pain level now: 01/31. --20:14 Sheriff Banks R.N. Locked/Released at 03/30/2017 20:14 by Sheriff Banks R.N.
--- NOTE | 2017-03-30 19:58 | ED ORDER SUMMARY ---
..... Patient: SOLOMON GUEVARA OrderSheet [facility] VisitID: [id number] [address] [place] [address] 26y, F Registration Date/Time: 03/30/2017 ORDER SHEET Weight: 87.0 kg (stated) Allergies: Ibuprofen GENERAL ORDERS: Associate Professor Of Anthropology (Continuous) (18:40 03/30/2017 HBivens A.R.N.P.) (Ack 18:46 LNations ER Tech1) Chest 1V Urgent (18:40 03/30/2017 HBivens A.R.N.P.) (Ack 18:46 LNations ER Tech1) CBC w Diff Urgent (18:40 03/30/2017 HBivens A.R.N.P.) (Ack 18:46 LNations ER Tech1) CMP Urgent (18:40 03/30/2017 HBivens A.R.N.P.) (Ack 18:46 LNations ER Tech1) D-Dimer Urgent (18:40 03/30/2017 HBivens A.R.N.P.) (Ack 18:46 LNations ER Tech1) CPK Urgent (18:40 03/30/2017 HBivens A.R.N.P.) (Ack 18:46 LNations ER Tech1) Troponin-I Urgent (18:40 03/30/2017 HBivens A.R.N.P.) (Ack 18:46 LNations ER Tech1) Serum Qualitative Urgent (18:40 03/30/2017 HBivens A.R.N.P.) (Ack 18:46 LNations ER Tech1) EKG - ER Stat (18:40 03/30/2017 HBivens A.R.N.P.) (18:45 PWeiler ER Tech1) UA-Culture if indicated Urgent (18:54 03/30/2017 SSambou R.N. verbal order read back to HBivens A.R.N.P.) (18:55 SSambou R.N.) MEDICATION ORDERS: Hydrocodone-APAP PO 5/325 mg (NOW, HIGH ALERT MEDICATION) (19:57 03/30/2017 HBivens A.R.N.P.) (20:01 Bello R.N.) IV FLUIDS: IV Saline Lock (18:40 03/30/2017 Clarice A.R.N.P.) (18:50 Bello R.N.) ORDER SHEET NOTES: [Electronically signed by Sheriff Donis Banks (20:14 03/30/2017)] [Electronically signed by Sandra WestonNBarbPBarb (21:20 03/30/2017)] [Electronically locked/signed by Sheriff Donis Banks (20:14 03/30/2017)]
--- NOTE | 2017-03-30 19:58 | ED NURSING NOTES ---
Clinical Report - Nurses [facility] [address] [place] [address] 03/30/2017 18:24 Patient: SOLOMON GUEVARA TRIAGE Triage time 18:29. Acuity: LEVEL 3. Chief Complaint: CHEST PAIN. --18:34 Sheriff Banks R.N. 18:29 03/30/17. BP: 116/66. HR: 95. RR: 18. O2 saturation: 97%. Temp: 98.2 F. Pain level now: 08/02. --18:34 Sheriff Banks R.N. Weight: 87 kg stated. Height/Length: 59 inches Per Patient. BMI: 38.8. --18:33 Sheriff Banks R.N. Medications Albuterol Sulfate Inhalation. Atrovent HFA Inhalation. --18:31 Sheriff Banks R.N. Allergies Ibuprofen.(angioedema) --18:31 Sheriff Banks R.N. History Arrived by private vehicle. Historian: patient. Accompanied by family. Onset. (1 months ago). ( Chest pain started getting worst this morning. [place] like someone punching me really hard on the chest.). SURGERY HX: . SOCIAL HX: Smoker- current status unknown (3 cigarettes daily.). History of drug use: marijuana. No alcohol use. FALL RISK ASSESSMENT: Fall risk assessment completed. No fall risk identified. NUTRITIONAL RISK ASSESSMENT: The nutritional risk assessment revealed no deficiencies. FUNCTIONAL ASSESSMENT: Functional assessment: no impairments noted. LEARNING NEEDS ASSESSMENT: The learning needs assessment revealed no barriers. SKIN INTEGRITY ASSESSMENT: Skin integrity risk assessment completed. No skin integrity risk identified. --18:34 Sheriff Banks R.N. PROBLEMS: Depression. Torticollis. Neck Pain. Bronchitis. Dental Pain. UTI - Urinary Tract Infection. Headache. Developmental Delay. Asthma. --18:31 Sheriff Banks R.N. Interventions ID band on patient. --18:34 Sambou, Balance Truer, R.N. PHYSICAL ASSESSMENT Ambulatory to room. GENERAL / NEURO / PSYCH: Alert. Oriented X 4. Appears in no acute distress. HEENT: Mucous membranes are pink. RESPIRATORY: Respirations not labored. CVS: Pulses within normal limits. Capillary refill less than 2 seconds. SKIN: Skin is warm and dry. --18:35 Sheriff Banks R.N. NURSING PROGRESS NOTES Patient gowned. Head of bed elevated. Two patient identifiers checked. Call light placed in reach. Side rails up. Bed placed in lowest position. Brakes of bed on. --18:35 Sheriff Banks R.N. 18:50 03/30/2017 Site #1 started via IV in the right antecubital space with an 20g angiocath, with aseptic technique and good blood return; one attempt. Blood drawn: rainbow set. Labeled in the presence of the patient and sent to the lab. Saline lock flushed with 10 mL saline. --18:50 Sheriff Banks R.N. ( urine collected and sent to lab.). --18:56 Natasha Funez R.N. 20:01 03/30/2017 Hydrocodone-APAP (Hydrocodone-Acetaminophen) PO 5/325 mg Tablets 1 tab given. Allergies verified, confirmed 5 rights and sedative warning given to the patient. --20:01 Sheriff Banks R.N. DISPOSITION / DISCHARGE Condition at departure: stable. No learning barriers present. Discharge instructions provided and reviewed with the patient. Reviewed medication(s) side effects, precautions, dosing and course information. Prescription(s) given to the patient. Patient verbalized understanding. Written instructions provided in [place]ese. The patient was discharged by the physician psychological assistant. She was discharged home and accompanied by family. She left the Emergency Department ambulatory and via private vehicle. Family member driving. --20:14 Sheriff Banks R.N. 20:13 03/30/17. BP: 92/51. HR: 83. RR: 18. O2 saturation: 95%. Temp: 98.8 F. Pain level now: 01/31. --20:14 Sheriff Banks R.N. Locked/Released at 03/30/2017 20:14 by Sheriff Banks R.N.
--- NOTE | 2017-03-30 21:21 | ED MAR SUMMARY ---
..... Medication Administration Record [address] [place] [address] Patient: SOLOMON GUEVARA Visit ID: [id number] 26y, F Weight: 87.0 kg Height/Length: 59 in BMI: 38.8 ALLERGIES: Ibuprofen Given 20:01 03/30/2017 Sheriff Banks R.N. Medication Administered: HYDROCODONE-APAP [PO] (HYDROCODONE-ACETAMINOPHEN), Dose: 1 tab 5/325 mg Tablets PO. Medication Ordered: Hydrocodone-APAP PO 5/325 mg (NOW, HIGH ALERT MEDICATION).
--- NOTE | 2017-03-30 21:21 | ED MAR SUMMARY ---
..... Medication Administration Record [address] [place] [address] Patient: SOLOMON GUEVARA Visit ID: [id number] 26y, F Weight: 87.0 kg Height/Length: 59 in BMI: 38.8 ALLERGIES: Ibuprofen Given 20:01 03/30/2017 Sheriff Banks R.N. Medication Administered: HYDROCODONE-APAP [PO] (HYDROCODONE-ACETAMINOPHEN), Dose: 1 tab 5/325 mg Tablets PO. Medication Ordered: Hydrocodone-APAP PO 5/325 mg (NOW, HIGH ALERT MEDICATION).
--- NOTE | 2017-03-30 21:21 | ED DISCHARGE INSTRUCTIONS ---
Patient: SOLOMON GUEVARA General Instructions [facility] VisitID: [id number] [place] [address] 26y, F Registration Date/Time: 03/30/2017 Costochondritis .12 lead EKG performed. INSTRUCTIONS Warnings: GENERAL WARNINGS: Return or contact your physician immediately if your condition worsens or changes unexpectedly, if not improving as expected, or if other problems arise. SPECIFICALLY, return if you develop chest, neck, jaw, shoulder, arm, or back pain, difficulty breathing, a fluttering sensation in your chest, lightheadedness, fainting, excessive fatigue, or sudden sweating. Prescription Medications: [place] 5 mg / 325 mg tablets: take 1 orally every 6 hours as needed for pain. Dispense five (5). No refill. Follow-up: Follow up with your doctor in about two days even if well. Call for an appointment. Summary of care provided to patient. Understanding of the discharge instructions verbalized by patient. ADDITIONAL INFORMATION Chest Wall Pain: Costochondritis The chest pain that you have had today is caused by Costochondritis. This condition is due to an inflammation of the cartilage joining the ribs to the breastbone. It is not caused by heart or lung problems. Although the exact cause for costochondritis is not known, it often occurs during times of emotional stress. It can be painful, but it is not dangerous. It usually disappears within one to two weeks, but may recur. Rarely, a more serious condition may cause symptoms similar to costochondritis; therefore, watch for the warning signs listed below. Home Care: If you feel that emotional stress is a cause of your condition, try to identify sources of that stress. It may not be obvious! Learn ways to deal with the stress in your life such as regular exercise, muscle relaxation, meditation, or simply taking time out for yourself. For more information about this, consult your doctor or go to a local bookstore and review books and tapes available on the subject of stress reduction. You may use acetaminophen (Tylenol) or ibuprofen (Motrin, Advil) to control pain, unless another pain medicine was prescribed. [ NOTE: If you have liver disease or ever had a stomach ulcer, talk with your doctor before using these medicines.] The use of heat (hot wet compress or heating pad) with or without local analgesic creams (Deep Heat Rub, Luke Abrams) will be helpful to reduce pain. Follow Up with your doctor as directed or sooner if you do not start to improve within the next two days. Get Prompt Medical Attention if any of the following occur: A change in the type of pain: if it feels different, becomes more severe, lasts longer, or spreads into your shoulder, arm, neck, jaw or back Shortness of breath or increased pain with breathing Weakness, dizziness, or fainting Cough with dark colored sputum (phlegm) or blood Abdominal pain Dark red or black stools Fever of 100.4F (38C) or higher, or as directed by your healthcare provider Hydrocodone Bitartrate, Acetaminophen Oral tablet What is this medicine? ACETAMINOPHEN; HYDROCODONE (a set a BENJAMIN chen fen; flavia droe KOE done) is a pain reliever. It is used to treat mild to moderate pain. How should I use this medicine? Take this medicine by mouth. Swallow it with a full glass of water. Follow the directions on the prescription label. If the medicine upsets your stomach, take the medicine with food or milk. Do not take more than you are told to take. Talk to your drafter directional survey regarding the use of this medicine in children. This medicine is not approved for use in children. What side effects may I notice from receiving this medicine? Side effects that you should report to your doctor or health attending ambulatory care as soon as possible: allergic reactions like skin rash, itching or hives, swelling of the face, lips, or tongue breathing problems confusion feeling faint or lightheaded, falls stomach pain yellowing of the eyes or skin Side effects that usually do not require medical attention (report to your doctor or health attending ambulatory care if they continue or are bothersome): nausea, vomiting stomach upset What may interact with this medicine? alcohol antihistamines isoniazid medicines for depression, anxiety, or psychotic disturbances medicines for sleep muscle relaxants naltrexone narcotic medicines (opiates) for pain phenobarbital ritonavir tramadol What if I miss a dose? If you miss a dose, take it as soon as you can. If it is almost time for your next dose, take only that dose. Do not take double or extra doses. Where should I keep my medicine? Keep out of the reach of children. This medicine can be abused. Keep your medicine in a safe place to protect it from theft. Do not share this medicine with anyone. Selling or giving away this medicine is dangerous and against the law. Store at room temperature between 15 and 30 degrees C (59 and 86 degrees F). Protect from light. Keep container tightly closed. Throw away any unused medicine after the expiration date. Discard unused medicine and used packaging carefully. Pets and children can be harmed if they find used or lost packages. What should I tell my health care provider before I take this medicine? They need to know if you have any of these conditions: brain tumor Crohn's disease, inflammatory bowel disease, or ulcerative colitis drink more than 3 alcohol-containing drinks per day drug abuse or addiction head injury heart or circulation problems kidney disease or problems going to the bathroom liver disease lung disease, asthma, or breathing problems an unusual or allergic reaction to acetaminophen, hydrocodone, other opioid analgesics, other medicines, foods, dyes, or preservatives or trying to get breast-feeding What should I watch for while using this medicine? Tell your doctor or health attending ambulatory care if your pain does not go away, if it gets worse, or if you have new or a different type of pain. You may develop tolerance to the medicine. Tolerance means that you will need a higher dose of the medicine for pain relief. Tolerance is normal and is expected if you take the medicine for a long time. Do not suddenly stop taking your medicine because you may develop a severe reaction. Your body becomes used to the medicine. This does NOT mean you are addicted. Addiction is a behavior related to getting and using a drug for a non-medical reason. If you have pain, you have a medical reason to take pain medicine. Your doctor will tell you how much medicine to take. If your doctor wants you to stop the medicine, the dose will be slowly lowered over time to avoid any side effects. You may get drowsy or dizzy when you first start taking the medicine or change doses. Do not drive, use machinery, or do anything that may be dangerous until you know how the medicine affects you. Stand or sit up slowly. There are different types of narcotic medicines (opiates) for pain. If you take more than one type at the same time, you may have more side effects. Give your health care provider a list of all medicines you use. Your doctor will tell you how much medicine to take. Do not take more medicine than directed. Call emergency for help if you have problems breathing. The medicine will cause constipation. Try to have a bowel movement at least every 2 to 3 days. If you do not have a bowel movement for 3 days, call your doctor or health attending ambulatory care. Too much acetaminophen can be very dangerous. Do not take Tylenol (acetaminophen) or medicines that contain acetaminophen with this medicine. Many non-prescription medicines contain acetaminophen. Always read the labels carefully. You have been given the following additional information: Chest Wall Pain, Costochondritis Hydrocodone Bitartrate, Acetaminophen Oral tablet (Electronically signed by Sandra Weston A.R.N.P. 03/30/2017 21:20)
--- NOTE | 2017-03-30 21:21 | ED DISCHARGE INSTRUCTIONS ---
Patient: SOLOMON GUEVARA General Instructions [facility] VisitID: [id number] [place] [address] 26y, F Registration Date/Time: 03/30/2017 Costochondritis .12 lead EKG performed. INSTRUCTIONS Warnings: GENERAL WARNINGS: Return or contact your physician immediately if your condition worsens or changes unexpectedly, if not improving as expected, or if other problems arise. SPECIFICALLY, return if you develop chest, neck, jaw, shoulder, arm, or back pain, difficulty breathing, a fluttering sensation in your chest, lightheadedness, fainting, excessive fatigue, or sudden sweating. Prescription Medications: [place] 5 mg / 325 mg tablets: take 1 orally every 6 hours as needed for pain. Dispense five (5). No refill. Follow-up: Follow up with your doctor in about two days even if well. Call for an appointment. Summary of care provided to patient. Understanding of the discharge instructions verbalized by patient. ADDITIONAL INFORMATION Chest Wall Pain: Costochondritis The chest pain that you have had today is caused by Costochondritis. This condition is due to an inflammation of the cartilage joining the ribs to the breastbone. It is not caused by heart or lung problems. Although the exact cause for costochondritis is not known, it often occurs during times of emotional stress. It can be painful, but it is not dangerous. It usually disappears within one to two weeks, but may recur. Rarely, a more serious condition may cause symptoms similar to costochondritis; therefore, watch for the warning signs listed below. Home Care: If you feel that emotional stress is a cause of your condition, try to identify sources of that stress. It may not be obvious! Learn ways to deal with the stress in your life such as regular exercise, muscle relaxation, meditation, or simply taking time out for yourself. For more information about this, consult your doctor or go to a local bookstore and review books and tapes available on the subject of stress reduction. You may use acetaminophen (Tylenol) or ibuprofen (Motrin, Advil) to control pain, unless another pain medicine was prescribed. [ NOTE: If you have liver disease or ever had a stomach ulcer, talk with your doctor before using these medicines.] The use of heat (hot wet compress or heating pad) with or without local analgesic creams (Deep Heat Rub, Luke Abrams) will be helpful to reduce pain. Follow Up with your doctor as directed or sooner if you do not start to improve within the next two days. Get Prompt Medical Attention if any of the following occur: A change in the type of pain: if it feels different, becomes more severe, lasts longer, or spreads into your shoulder, arm, neck, jaw or back Shortness of breath or increased pain with breathing Weakness, dizziness, or fainting Cough with dark colored sputum (phlegm) or blood Abdominal pain Dark red or black stools Fever of 100.4F (38C) or higher, or as directed by your healthcare provider Hydrocodone Bitartrate, Acetaminophen Oral tablet What is this medicine? ACETAMINOPHEN; HYDROCODONE (a set a BENJAMIN chen fen; flavia droe KOE done) is a pain reliever. It is used to treat mild to moderate pain. How should I use this medicine? Take this medicine by mouth. Swallow it with a full glass of water. Follow the directions on the prescription label. If the medicine upsets your stomach, take the medicine with food or milk. Do not take more than you are told to take. Talk to your hepatologist regarding the use of this medicine in children. This medicine is not approved for use in children. What side effects may I notice from receiving this medicine? Side effects that you should report to your doctor or health wild animal caretaker as soon as possible: allergic reactions like skin rash, itching or hives, swelling of the face, lips, or tongue breathing problems confusion feeling faint or lightheaded, falls stomach pain yellowing of the eyes or skin Side effects that usually do not require medical attention (report to your doctor or health wild animal caretaker if they continue or are bothersome): nausea, vomiting stomach upset What may interact with this medicine? alcohol antihistamines isoniazid medicines for depression, anxiety, or psychotic disturbances medicines for sleep muscle relaxants naltrexone narcotic medicines (opiates) for pain phenobarbital ritonavir tramadol What if I miss a dose? If you miss a dose, take it as soon as you can. If it is almost time for your next dose, take only that dose. Do not take double or extra doses. Where should I keep my medicine? Keep out of the reach of children. This medicine can be abused. Keep your medicine in a safe place to protect it from theft. Do not share this medicine with anyone. Selling or giving away this medicine is dangerous and against the law. Store at room temperature between 15 and 30 degrees C (59 and 86 degrees F). Protect from light. Keep container tightly closed. Throw away any unused medicine after the expiration date. Discard unused medicine and used packaging carefully. Pets and children can be harmed if they find used or lost packages. What should I tell my health care provider before I take this medicine? They need to know if you have any of these conditions: brain tumor Crohn's disease, inflammatory bowel disease, or ulcerative colitis drink more than 3 alcohol-containing drinks per day drug abuse or addiction head injury heart or circulation problems kidney disease or problems going to the bathroom liver disease lung disease, asthma, or breathing problems an unusual or allergic reaction to acetaminophen, hydrocodone, other opioid analgesics, other medicines, foods, dyes, or preservatives or trying to get breast-feeding What should I watch for while using this medicine? Tell your doctor or health wild animal caretaker if your pain does not go away, if it gets worse, or if you have new or a different type of pain. You may develop tolerance to the medicine. Tolerance means that you will need a higher dose of the medicine for pain relief. Tolerance is normal and is expected if you take the medicine for a long time. Do not suddenly stop taking your medicine because you may develop a severe reaction. Your body becomes used to the medicine. This does NOT mean you are addicted. Addiction is a behavior related to getting and using a drug for a non-medical reason. If you have pain, you have a medical reason to take pain medicine. Your doctor will tell you how much medicine to take. If your doctor wants you to stop the medicine, the dose will be slowly lowered over time to avoid any side effects. You may get drowsy or dizzy when you first start taking the medicine or change doses. Do not drive, use machinery, or do anything that may be dangerous until you know how the medicine affects you. Stand or sit up slowly. There are different types of narcotic medicines (opiates) for pain. If you take more than one type at the same time, you may have more side effects. Give your health care provider a list of all medicines you use. Your doctor will tell you how much medicine to take. Do not take more medicine than directed. Call emergency for help if you have problems breathing. The medicine will cause constipation. Try to have a bowel movement at least every 2 to 3 days. If you do not have a bowel movement for 3 days, call your doctor or health wild animal caretaker. Too much acetaminophen can be very dangerous. Do not take Tylenol (acetaminophen) or medicines that contain acetaminophen with this medicine. Many non-prescription medicines contain acetaminophen. Always read the labels carefully. You have been given the following additional information: Chest Wall Pain, Costochondritis Hydrocodone Bitartrate, Acetaminophen Oral tablet (Electronically signed by Sandra Weston A.R.N.P. 03/30/2017 21:20)
--- NOTE | 2017-03-30 21:21 | ED MED RECONCILIATION SUMMARY ---
Patient: SOLOMON GUEVARA Medication Reconciliation Report [facility] VisitID: [id number] [address] [place] [address] 26y, F Registration Date/Time: 03/30/2017 Weight: 87.0 kg Height/Length: 59 in. BMI: 38.8 ALLERGIES: Ibuprofen The patient's Home Medications are listed below: THE FOLLOWING MEDICATIONS NEED TO BE RECONCILED: Albuterol Sulfate Inhalation Atrovent HFA Inhalation The source(s) of the original Home Medication information: Not obtained. The following Medications were given to the patient in the Emergency Department: Hydrocodone-APAP [PO] PO 1 tab, administered: 03/30/2017 8:01:00 PM The following Medications were prescribed to the patient: [place] 5 mg / 325 mg tablets: take 1 orally every 6 hours as needed for pain. Dispense five (5). No refill. -- Sandra Weston A.R.N.P.
--- NOTE | 2017-03-30 21:21 | ED MED RECONCILIATION SUMMARY ---
Patient: SOLOMON GUEVARA Medication Reconciliation Report [facility] VisitID: [id number] [address] [place] [address] 26y, F Registration Date/Time: 03/30/2017 Weight: 87.0 kg Height/Length: 59 in. BMI: 38.8 ALLERGIES: Ibuprofen The patient's Home Medications are listed below: THE FOLLOWING MEDICATIONS NEED TO BE RECONCILED: Albuterol Sulfate Inhalation Atrovent HFA Inhalation The source(s) of the original Home Medication information: Not obtained. The following Medications were given to the patient in the Emergency Department: Hydrocodone-APAP [PO] PO 1 tab, administered: 03/30/2017 8:01:00 PM The following Medications were prescribed to the patient: [place] 5 mg / 325 mg tablets: take 1 orally every 6 hours as needed for pain. Dispense five (5). No refill. -- Sandra Weston A.R.N.P.
== END 2017-03-30 20:14 | disposition home or self-care (01) ==
LOC: ED SRH 18:24
DX: M94.0 Chondrocostal junction syndrome [Tietze] (principal); J45.909 Unspecified asthma, uncomplicated; Z72.0 Tobacco use; Z79.51 Long term (current) use of inhaled steroids; Z88.6 Allergy status to analgesic agent
CPT/HCPCS: 90004; 90100; 90616; 91556; 92610; 95059; 98428

== ENCOUNTER 2017-05-03 21:04 | Emergency (ER) | payer OTHER ==
--- NOTE | 2017-05-03 21:37 | ED ORDER SUMMARY ---
..... Patient: SOLOMON GUEVARA OrderSheet [facility] VisitID: [id number] [place] [address] 26y, F Registration Date/Time: 05/03/2017 ORDER SHEET Weight: 89.3 kg (stated) Allergies: Ibuprofen GENERAL ORDERS: MEDICATION ORDERS: Lidocaine-Epinephrine Injection 1% (place at bedside) (21:21 05/03/2017 Elgin Winter) (21:29 KPapatito-Elmira R.N.) Bupivacaine-Epinephrine Injection 0.5 % (soln) (NOW) (21:21 05/03/2017 Elgin Winter) (21:29 KPapatito-Elmira R.N.) Penicillin V Potassium PO 500 mg (NOW) (21:21 05/03/2017 Elgin Wniter) (Ack 21:29 KPapatito-Elmira R.N.) (21:39 KPage-Elmira R.N.) Cmqxbgt-Ufwacq-Krxab Pertussis IM 0.5 mL (NOW, per protocol) (21:34 05/03/2017 Elgin Winter) (Ack 21:34 KPage-Elmira R.N.) (21:40 KPage-Elmira R.N.) IV FLUIDS: ORDER SHEET NOTES: [Electronically signed by Silvana Mancuso R.N. (21:55 05/03/2017)] [Electronically signed by Trevor Garcia Dr. (08:51 05/04/2017)] [Electronically locked/signed by Silvana Mancuso R.N. (21:55 05/03/2017)]
--- NOTE | 2017-05-03 21:37 | ED CLINICAL REPORT ---
Clinical Report - Physicians/Mid Levels [facility] [address] [place] [address] 05/03/2017 21:06 Patient: SOLOMON GUEVARA Time Seen: 2118; initial patient contact. Arrived- By private vehicle. Historian- patient. HISTORY OF PRESENT ILLNESS Chief Complaint: DENTAL PAIN. This started past few days and is still present and worsening. It was abrupt in onset and has been constant but is not gone now. Pain described as moderate. The patient has had toothache and facial pain. (recent dental procedure 1 month ago. no other symptoms. tetanus not up to date.). Similar symptoms previously: None. Recent medical care: Not recently seen/assessed. REVIEW OF SYSTEMS No fever, difficulty breathing, chest pain, nausea or headache. All systems otherwise negative, except as recorded above. PAST HISTORY See nurses notes. Medications: Albuterol Sulfate Inhalation. Atrovent HFA Inhalation. Allergies: Ibuprofen.(angioedema). SOCIAL HISTORY Smoker- current status unknown. History of drug use: marijuana. No alcohol use. No recent travel. Is a local resident. ADDITIONAL NOTES The nursing notes have been reviewed. PHYSICAL EXAM Vital Signs: 05/03/2017 21:54 Pain level now: 0/10. 05/03/2017 21:25 BP: 109/59. HR: 88. RR: 17. O2 saturation: 100%. Temp: 98 F. Pain level now: 10/10. Blood pressure normal. Oxygen saturation normal. Appearance: Alert. Patient in mild distress. (non-toxic.). Head: Normal external inspection. Eyes: Pupils equal, round and reactive to light. Conjunctivae and eyelids normal. ENT: Moderate, localized dental decay (right maxillary molars with abscess. spontaneously draining.). Ears normal. Nose normal. Pharynx normal. Lips normal. Gums normal. No trismus present. Uvula midline. Neck: Normal inspection. Trachea midline. No adenopathy. Thyroid normal. Neck supple. CVS: Normal heart rate and rhythm. Heart sounds normal. Pulses normal. Respiratory: No respiratory distress. Breath sounds normal. Chest nontender. Abdomen: Soft and nontender. No organomegaly. Skin: Normal skin color. No rash. Normal skin turgor. Extremities: Extremities exhibit normal ROM. Extremities nontender. PROGRESS AND PROCEDURES Dental Nerve Block: Periapical Block. Procedure performed on the right side. Landmarks were identified. Topical anesthetic applied. Total volume of 4 mL 1% Lidocaine and 0.25% Marcaine infiltrated using a 27-gauge needle. Patient cooperative during procedure. No complications encountered. Excellent anesthesia achieved. Course of Care: Patient is a 26 yo female with dental pain. patient with no other symptoms. discused iwth patient dental block. patient agreeable to procedure. abx and tetanus given. patient tolerated procedure well. no complications. please see note for details. discussed with pateint work up, diagnosis, home care, follow up, and return precautions. all questions answered. aptient expressed understanding of these instructions and was agreeable to them. Disposition: Discharged. Condition: good. CLINICAL IMPRESSION Dental caries (localized) (acute right maxillary molars). Periapical dental abscess (right maxillary). right facial pain, acute. INSTRUCTIONS Warnings: GENERAL WARNINGS: Return or contact your physician immediately if your condition worsens or changes unexpectedly, if not improving as expected, or if other problems arise. Specifically return if pain, vomiting, bleeding, breathing difficulty or fever. Prescription Medications: Penicillin V 500 mg: take 1 tab orally every 12 hours for 10 days. Dispense twenty (20). No refills. [place] 5 mg / 325 mg tablets: take 1 orally every 6 hours as needed for pain. Dispense twelve (12). No refill. Substitution is permissible. Follow-up: Return to the emergency department as needed. Follow up with a dentist. Reason for referral: as soon as possible for follow up. Summary of care provided to patient via paper. Follow up with your doctor in three days. Reason for referral: recheck today's concerns. Summary of care provided to patient via paper. Screening today revealed the patient's blood pressure to be in the normal range. The patient should follow up with a primary care provider for blood pressure management. Understanding of the discharge instructions verbalized by patient. (Electronically signed by Trevor Garcia Dr. 05/04/2017 8:51)
--- NOTE | 2017-05-03 21:37 | ED ORDER SUMMARY ---
..... Patient: SOLOMON GUEVARA OrderSheet [facility] VisitID: [id number] [place] [address] 26y, F Registration Date/Time: 05/03/2017 ORDER SHEET Weight: 89.3 kg (stated) Allergies: Ibuprofen GENERAL ORDERS: MEDICATION ORDERS: Lidocaine-Epinephrine Injection 1% (place at bedside) (21:21 05/03/2017 Elgin Winter) (21:29 KPapatito-Elmira R.N.) Bupivacaine-Epinephrine Injection 0.5 % (soln) (NOW) (21:21 05/03/2017 Elgin Winter) (21:29 KPapatito-Elmira R.N.) Penicillin V Potassium PO 500 mg (NOW) (21:21 05/03/2017 Elgin Winter) (Ack 21:29 KPapatito-Elmira R.N.) (21:39 KPage-Elmira R.N.) Xnbzrbn-Ehmfkx-Lgyzg Pertussis IM 0.5 mL (NOW, per protocol) (21:34 05/03/2017 Elgin Winter) (Ack 21:34 KPage-Elmira R.N.) (21:40 KPage-Elmira R.N.) IV FLUIDS: ORDER SHEET NOTES: [Electronically signed by Silvana Mancuso R.N. (21:55 05/03/2017)] [Electronically signed by Trevor Garcia Dr. (08:51 05/04/2017)] [Electronically locked/signed by Silvana Mancuso R.N. (21:55 05/03/2017)]
--- NOTE | 2017-05-03 21:37 | ED NURSING NOTES ---
Clinical Report - Nurses [facility] [address] [place] [address] 05/03/2017 21:06 Patient: SOLOMON GUEVARA TRIAGE Triage time 21:May 03 2017. Acuity: LEVEL 4. Chief Complaint: RIGHT UPPER TOOTHACHE and JAW PAIN. Alert. No acute distress. SEPSIS SCREEN: Sepsis Screen. Negative (no infection suspected/documented). --21:28 Silvana Mancuso R.N. 21:25 05/03/17. BP: 109/59. HR: 88. RR: 17. O2 saturation: 100%. Temp: 98 F. Pain level now: 08/02. --21:28 Silvana Mancuso R.N. Weight: 89.3 kg stated. Height/Length: 58 inches Per Patient. BMI: 41.2. --21:24 Silvana Mancuso R.N. Medications Albuterol Sulfate Inhalation. Atrovent HFA Inhalation. --21:25 Silvana Mancuso R.N. Medication/allergy information source: the patient. --21:28 Silvana Mancuso R.N. Allergies Ibuprofen.(angioedema) --21:25 Silvana Mancuso R.N. History Arrived by private vehicle. Historian: patient. Accompanied by friend. Onset. (3 days ago). She has no dental appointment scheduled. She has a dental appointment scheduled (pt does have dentist chc). She has had facial pain. 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 PAST MEDICAL HX: Immunizations: status is unknown. Last normal menstrual period- 2 years ago- pt reports has IUD. SOCIAL HX: Smoker- current status unknown. History of drug use: marijuana. No alcohol use. No infectious disease exposure. ABUSE ASSESSMENT: No report of abuse. SELF HARM ASSESSMENT: A self harm assessment was performed. The patient answered "no" to the question "Do you have thoughts of harming or killing yourself?". FALL RISK ASSESSMENT: Fall risk assessment completed. No fall risk identified. NUTRITIONAL RISK ASSESSMENT: The nutritional risk assessment revealed no deficiencies. FUNCTIONAL ASSESSMENT: Functional assessment: no impairments noted. LEARNING NEEDS ASSESSMENT: The learning needs assessment revealed no barriers. SKIN INTEGRITY ASSESSMENT: Skin integrity risk assessment completed. No skin integrity risk identified. --21:28 Silvana Mancuso R.N. PROBLEMS: Costochondritis. Depression. Torticollis. Neck Pain. Bronchitis. Dental Pain. UTI - Urinary Tract Infection. Headache. Developmental Delay. Asthma. --21:26 Silvana Mancuso R.N. ADDITIONAL SURGERIES: Cholecystectomy. . Traumatic brain injury. --21:26 Silvana Mancuso R.N. Interventions ID and allergy band on patient. --21:28 Silvana Mancuso R.N. PHYSICAL ASSESSMENT Ambulatory to room. GENERAL / NEURO / PSYCH: Alert. Oriented X 4. Appears in pain. HEENT: Pupils equal, round and reactive to light. Pharynx within normal limits. Voice within normal limits. Dental decay. Mucous membranes are pink. RESPIRATORY: Respirations not labored. CVS: Capillary refill less than 2 seconds. SKIN: Skin is warm and dry. --21:28 Silvana Mancuso R.N. NURSING PROGRESS NOTES Two patient identifiers checked. Call light placed in reach. Side rails up x 1. Bed placed in lowest position. Brakes of bed on. --21:29 Silvana Mancuso R.N. 21:24 05/03/2017 Lidocaine-Epinephrine (Lidocaine-Epinephrine) Injection 1 % given. (given to MD). --21:29 Silvana Mancuso R.N. 21:24 05/03/2017 Bupivacaine-Epinephrine (Bupivacaine-Epinephrine) Injection 0.5 % given. (given to MD). --21:29 Silvana Mancuso R.N. 21:35 05/03/2017 QCAEJEL-UAPVIR-UFBGB PERTUSSIS IM 0.5 mL given. (Lot#: [id number], expiration date: 03/29/2019, Grid Maker: sanofi pasteur). Given in the right deltoid. Allergies verified and confirmed 5 rights. Vaccine information statement provided to the patient. --21:40 Silvana Mancuso R.N. 21:39 05/03/2017 Penicillin V Potassium PO 500 mg given. Allergies verified and confirmed 5 rights. --21:39 Silvana Mancuso R.N. DISPOSITION / DISCHARGE Condition at departure: improved. No learning barriers present. Discharge instructions provided and reviewed with the patient. Reviewed medication(s) side effects, precautions, dosing and course information. Prescription(s) given to the patient. Patient verbalized understanding. Written instructions provided in Hebrew. The patient was discharged by the physician. She was discharged home and accompanied by family. She left the Emergency Department ambulatory and via private vehicle. Family member driving. --21:55 Silvana Mancuso R.N. 21:54 05/03/17. BP: deferred. HR: deferred. RR: deferred. O2 saturation: deferred. Temp: deferred. Pain level now: 0/10. --21:55 Silvana Mancuso R.N. Locked/Released at 05/03/2017 21:55 by Silvana Mancuso R.N.
--- NOTE | 2017-05-03 21:37 | ED NURSING NOTES ---
Clinical Report - Nurses [facility] [address] [place] [address] 05/03/2017 21:06 Patient: SOLOMON GUEVARA TRIAGE Triage time 21:May 03 2017. Acuity: LEVEL 4. Chief Complaint: RIGHT UPPER TOOTHACHE and JAW PAIN. Alert. No acute distress. SEPSIS SCREEN: Sepsis Screen. Negative (no infection suspected/documented). --21:28 Silvana Mancuso R.N. 21:25 05/03/17. BP: 109/59. HR: 88. RR: 17. O2 saturation: 100%. Temp: 98 F. Pain level now: 08/02. --21:28 Silvana Mancuso R.N. Weight: 89.3 kg stated. Height/Length: 58 inches Per Patient. BMI: 41.2. --21:24 Silvana Mancuso R.N. Medications Albuterol Sulfate Inhalation. Atrovent HFA Inhalation. --21:25 Silvana Mancuso R.N. Medication/allergy information source: the patient. --21:28 Silvana Mancuso R.N. Allergies Ibuprofen.(angioedema) --21:25 Silvana Mancuso R.N. History Arrived by private vehicle. Historian: patient. Accompanied by friend. Onset. (3 days ago). She has no dental appointment scheduled. She has a dental appointment scheduled (pt does have dentist chc). She has had facial pain. 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 PAST MEDICAL HX: Immunizations: status is unknown. Last normal menstrual period- 2 years ago- pt reports has IUD. SOCIAL HX: Smoker- current status unknown. History of drug use: marijuana. No alcohol use. No infectious disease exposure. ABUSE ASSESSMENT: No report of abuse. SELF HARM ASSESSMENT: A self harm assessment was performed. The patient answered "no" to the question "Do you have thoughts of harming or killing yourself?". FALL RISK ASSESSMENT: Fall risk assessment completed. No fall risk identified. NUTRITIONAL RISK ASSESSMENT: The nutritional risk assessment revealed no deficiencies. FUNCTIONAL ASSESSMENT: Functional assessment: no impairments noted. LEARNING NEEDS ASSESSMENT: The learning needs assessment revealed no barriers. SKIN INTEGRITY ASSESSMENT: Skin integrity risk assessment completed. No skin integrity risk identified. --21:28 Silvana Mancuso R.N. PROBLEMS: Costochondritis. Depression. Torticollis. Neck Pain. Bronchitis. Dental Pain. UTI - Urinary Tract Infection. Headache. Developmental Delay. Asthma. --21:26 Silvana Mancuso R.N. ADDITIONAL SURGERIES: Cholecystectomy. . Traumatic brain injury. --21:26 Silvana Mancuso R.N. Interventions ID and allergy band on patient. --21:28 Silvana Mancuso R.N. PHYSICAL ASSESSMENT Ambulatory to room. GENERAL / NEURO / PSYCH: Alert. Oriented X 4. Appears in pain. HEENT: Pupils equal, round and reactive to light. Pharynx within normal limits. Voice within normal limits. Dental decay. Mucous membranes are pink. RESPIRATORY: Respirations not labored. CVS: Capillary refill less than 2 seconds. SKIN: Skin is warm and dry. --21:28 Silvana Mancuso R.N. NURSING PROGRESS NOTES Two patient identifiers checked. Call light placed in reach. Side rails up x 1. Bed placed in lowest position. Brakes of bed on. --21:29 Silvana Mancuso R.N. 21:24 05/03/2017 Lidocaine-Epinephrine (Lidocaine-Epinephrine) Injection 1 % given. (given to MD). --21:29 Silvana Mancuso R.N. 21:24 05/03/2017 Bupivacaine-Epinephrine (Bupivacaine-Epinephrine) Injection 0.5 % given. (given to MD). --21:29 Silvana Mancuso R.N. 21:35 05/03/2017 AGAYHEL-KUEKUI-PFESW PERTUSSIS IM 0.5 mL given. (Lot#: [id number], expiration date: 03/29/2019, Mechanic Insulator: sanofi pasteur). Given in the right deltoid. Allergies verified and confirmed 5 rights. Vaccine information statement provided to the patient. --21:40 Silvana Mancuso R.N. 21:39 05/03/2017 Penicillin V Potassium PO 500 mg given. Allergies verified and confirmed 5 rights. --21:39 Silvana Mancuso R.N. DISPOSITION / DISCHARGE Condition at departure: improved. No learning barriers present. Discharge instructions provided and reviewed with the patient. Reviewed medication(s) side effects, precautions, dosing and course information. Prescription(s) given to the patient. Patient verbalized understanding. Written instructions provided in Latvian. The patient was discharged by the physician. She was discharged home and accompanied by family. She left the Emergency Department ambulatory and via private vehicle. Family member driving. --21:55 Silvana Mancuso R.N. 21:54 05/03/17. BP: deferred. HR: deferred. RR: deferred. O2 saturation: deferred. Temp: deferred. Pain level now: 0/10. --21:55 Silvana Mancuso R.N. Locked/Released at 05/03/2017 21:55 by Silvana Mancuso R.N.
--- NOTE | 2017-05-04 08:51 | ED DISCHARGE INSTRUCTIONS ---
Patient: SOLOMON GUEVARA General Instructions [facility] VisitID: [id number] [place] [address] 26y, F Registration Date/Time: 05/03/2017 Dental caries (localized) (acute right maxillary molars). Periapical dental abscess (right maxillary). right facial pain, acute. INSTRUCTIONS Warnings: GENERAL WARNINGS: Return or contact your physician immediately if your condition worsens or changes unexpectedly, if not improving as expected, or if other problems arise. Specifically return if pain, vomiting, bleeding, breathing difficulty or fever. Prescription Medications: Penicillin V 500 mg: take 1 tab orally every 12 hours for 10 days. Dispense twenty (20). No refills. [place] 5 mg / 325 mg tablets: take 1 orally every 6 hours as needed for pain. Dispense twelve (12). No refill. Substitution is permissible. Follow-up: Return to the emergency department as needed. Follow up with a dentist. Reason for referral: as soon as possible for follow up. Summary of care provided to patient via paper. Follow up with your doctor in three days. Reason for referral: recheck today's concerns. Summary of care provided to patient via paper. Screening today revealed the patient's blood pressure to be in the normal range. The patient should follow up with a primary care provider for blood pressure management. Understanding of the discharge instructions verbalized by patient. ADDITIONAL INFORMATION Dental Cavity A dental cavity is a pit or crater in the enamel surface of the tooth. This exposes the sensitive inner layer of the tooth and causes pain. If untreated, the cavity will get bigger and may cause an infection or abscess in the root of the tooth. An infection in the tooth is a much more serious problem and may require a root canal or removal of the entire tooth. The tooth pain may be made worse by drinking hot or cold fluids. It may spread from the tooth to the ear or jaw on the same side. Home Care: Avoid hot and cold foods, and liquids since your tooth may be sensitive to temperature changes. If your tooth is chipped or cracked, or if there is a large open cavity, apply OIL OF CLOVES (available jdqc-ggn-oelywdl in drug stores) directly to the tooth to reduce pain. Some pharmacies carry an gwrj-pgl-rjalrqd "toothache kit." This contains oil of cloves and a paste, which can be applied over the exposed tooth to decrease sensitivity. An ice pack on your jaw over the sore area may help to reduce pain. You may use acetaminophen (Tylenol) or ibuprofen (Motrin, Advil) to control pain, unless another pain medicine was prescribed. [ NOTE: If you have liver disease or ever had a stomach ulcer, talk with your doctor before using these medicines.] If you have signs of an infection, an antibiotic will be given. Take it as directed. Follow-Up with your dentist as directed. Although your pain may go away with the treatment given, only a dentist can fully evaluate and treat this problem to prevent further tooth damage. Get Prompt Medical Attention if any of the following occur: Redness or swelling of the face Pain worsens or spreads to the neck Fever over 100.5 F (38C) Unusual drowsiness; headache or stiff neck; weakness or fainting Pus drains from the tooth or gum Difficulty swallowing or breathing Dental Abscess A dental abscess is an infection of the tooth socket. It often starts with a crack or cavity in the tooth. A pocket of pus forms between the tooth and the bone. The infection causes pain and swelling of the gum, cheek or jaw. The pain is often made worse by drinking hot or cold fluids, or biting on hard foods. Pain may be felt in the facial sinus or in the ear. A severe infection can interfere with swallowing and breathing. In the emergency department or clinic, you will be started on an antibiotic. However, final treatment requires drainage of the pus. This can be done by removing the tooth or performing a root canal. A root canal is done by an oral surgeon and involves drilling an opening in the tooth to drain the pus. After the infection has healed, a crown is placed over the tooth. Home care The following guidelines will help you care for your abscess at home: Avoid hot and cold foods and liquids since your tooth may be sensitive to temperature changes. If your tooth is chipped or cracked, or if there is a large open cavity, applyoil of cloves(available kogx-ove-bhdcvti in drug stores) directly to the tooth to reduce pain. Some pharmacies carry an okus-shk-hrgumrs "toothache kit". This contains oil of cloves and a paste, which can be applied over the exposed tooth to decrease sensitivity. Apply an ice pack (ice cubes in a plastic bag, wrapped in a towel) over the injured area for 20 minutes every 12 hours the first day for pain relief. Continue this 34 times a day until the pain and swelling goes away. You may use acetaminophen or ibuprofen to control pain, unless another medicine was prescribed. If you have chronic liver or kidney disease or ever had a stomach ulcer or GI bleeding, talk with your doctor before using these medicines. An antibiotic will be prescribed. Take it as directed until completed, even if you are feeling better sooner. Follow-up care Follow up as directed with a dentist or oral surgeon. Even though your pain may improve with the treatment given today, only a dentist or oral surgeon can provide full treatment for this problem. When to seek medical care Get prompt medical attention or contact your doctor if any of the following occur: Your face or eyelid becomes swollen or red Pain worsens or spreads to the neck Fever over 100.4F (38.0C) Unusual drowsiness; headache or stiff neck; weakness, or fainting Pus drains from the gum or tooth Difficulty talking, swallowing or breathing Unable to open your mouth wide Penicillin V Potassium Oral tablet What is this medicine? PENICILLIN V (pen i SILL in V) is a penicillin antibiotic. It is used to treat certain kinds of bacterial infections. It will not work for colds, flu, or other viral infections. How should I use this medicine? Take this medicine by mouth with a full glass of water. Follow the directions on the prescription label. Take your medicine at regular intervals. Do not take your medicine more often than directed. Take all of your medicine as directed even if you think your are better. Do not skip doses or stop your medicine early. Talk to your supervisor [employer] shop regarding the use of this medicine in children. While this drug may be prescribed for selected conditions, precautions do apply. What side effects may I notice from receiving this medicine? Side effects that you should report to your doctor or health child care associate as soon as possible: allergic reactions like skin rash or hives, swelling of the face, lips, or tongue breathing problems fever new symptoms of infection redness, blistering, peeling or loosening of the skin, including inside the mouth unusually weak or tired Side effects that usually do not require medical attention (report to your doctor or health child care associate if they continue or are bothersome): diarrhea headache nausea, vomiting sore mouth or tongue stomach upset What may interact with this medicine? control pills methotrexate other antibiotics probenecid some vaccines What if I miss a dose? If you miss a dose, take it as soon as you can. If it is almost time for your next dose, take only that dose. Do not take double or extra doses. Where should I keep my medicine? Keep out of the reach of children. Store at room temperature between 15 and 30 degrees C (59 and 86 degrees F). Keep container tightly closed. Throw away any unused medicine after the expiration date. What should I tell my health care provider before I take this medicine? They need to know if you have any of these conditions: asthma bowel disease, like colitis eczema kidney disease an unusual or allergic reaction to penicillin, cephalosporins, other antibiotics or medicines, foods, tartrazine or other dyes, or preservatives or trying to get breast-feeding What should I watch for while using this medicine? Tell your doctor or health child care associate if your symptoms do not improve. Do not treat diarrhea with over the counter products. Contact your doctor if you have diarrhea that lasts more than 2 days or if it is severe and watery. If you have diabetes, you may get a false-positive result for sugar in your urine. Check with your doctor or health child care associate. control pills may not work properly while you are taking this medicine. Talk to your doctor about using an extra method of control. Hydrocodone Bitartrate, Acetaminophen Oral tablet What is this medicine? ACETAMINOPHEN; HYDROCODONE (a set a BENJAMIN chen fen; flavia droe KOE done) is a pain reliever. It is used to treat mild to moderate pain. How should I use this medicine? Take this medicine by mouth. Swallow it with a full glass of water. Follow the directions on the prescription label. If the medicine upsets your stomach, take the medicine with food or milk. Do not take more than you are told to take. Talk to your supervisor e[employer] shop regarding the use of this medicine in children. This medicine is not approved for use in children. What side effects may I notice from receiving this medicine? Side effects that you should report to your doctor or health child care associate as soon as possible: allergic reactions like skin rash, itching or hives, swelling of the face, lips, or tongue breathing problems confusion feeling faint or lightheaded, falls stomach pain yellowing of the eyes or skin Side effects that usually do not require medical attention (report to your doctor or health child care associate if they continue or are bothersome): nausea, vomiting stomach upset What may interact with this medicine? alcohol antihistamines isoniazid medicines for depression, anxiety, or psychotic disturbances medicines for sleep muscle relaxants naltrexone narcotic medicines (opiates) for pain phenobarbital ritonavir tramadol What if I miss a dose? If you miss a dose, take it as soon as you can. If it is almost time for your next dose, take only that dose. Do not take double or extra doses. Where should I keep my medicine? Keep out of the reach of children. This medicine can be abused. Keep your medicine in a safe place to protect it from theft. Do not share this medicine with anyone. Selling or giving away this medicine is dangerous and against the law. Store at room temperature between 15 and 30 degrees C (59 and 86 degrees F). Protect from light. Keep container tightly closed. Throw away any unused medicine after the expiration date. Discard unused medicine and used packaging carefully. Pets and children can be harmed if they find used or lost packages. What should I tell my health care provider before I take this medicine? They need to know if you have any of these conditions: brain tumor Crohn's disease, inflammatory bowel disease, or ulcerative colitis drink more than 3 alcohol-containing drinks per day drug abuse or addiction head injury heart or circulation problems kidney disease or problems going to the bathroom liver disease lung disease, asthma, or breathing problems an unusual or allergic reaction to acetaminophen, hydrocodone, other opioid analgesics, other medicines, foods, dyes, or preservatives or trying to get breast-feeding What should I watch for while using this medicine? Tell your doctor or health child care associate if your pain does not go away, if it gets worse, or if you have new or a different type of pain. You may develop tolerance to the medicine. Tolerance means that you will need a higher dose of the medicine for pain relief. Tolerance is normal and is expected if you take the medicine for a long time. Do not suddenly stop taking your medicine because you may develop a severe reaction. Your body becomes used to the medicine. This does NOT mean you are addicted. Addiction is a behavior related to getting and using a drug for a non-medical reason. If you have pain, you have a medical reason to take pain medicine. Your doctor will tell you how much medicine to take. If your doctor wants you to stop the medicine, the dose will be slowly lowered over time to avoid any side effects. You may get drowsy or dizzy when you first start taking the medicine or change doses. Do not drive, use machinery, or do anything that may be dangerous until you know how the medicine affects you. Stand or sit up slowly. There are different types of narcotic medicines (opiates) for pain. If you take more than one type at the same time, you may have more side effects. Give your health care provider a list of all medicines you use. Your doctor will tell you how much medicine to take. Do not take more medicine than directed. Call emergency for help if you have problems breathing. The medicine will cause constipation. Try to have a bowel movement at least every 2 to 3 days. If you do not have a bowel movement for 3 days, call your doctor or health child care associate. Too much acetaminophen can be very dangerous. Do not take Tylenol (acetaminophen) or medicines that contain acetaminophen with this medicine. Many non-prescription medicines contain acetaminophen. Always read the labels carefully. You have been given the following additional information: Dental Cavity Tooth Abscess Penicillin V Potassium Oral tablet Hydrocodone Bitartrate, Acetaminophen Oral tablet (Electronically signed by Trevor Garcia Dr. 05/04/2017 8:51)
--- NOTE | 2017-05-04 08:51 | ED MED RECONCILIATION SUMMARY ---
Patient: SOLOMON GUEVARA Medication Reconciliation Report [facility] VisitID: [id number] [place] [address] 26y, F Registration Date/Time: 05/03/2017 Weight: 89.3 kg Height/Length: 58 in. BMI: 41.2 ALLERGIES: Ibuprofen The patient's Home Medications are listed below: THE FOLLOWING MEDICATIONS NEED TO BE RECONCILED: Albuterol Sulfate Inhalation Atrovent HFA Inhalation The source(s) of the original Home Medication information: patient The following Medications were given to the patient in the Emergency Department: Lidocaine-Epinephrine [Injection] Injection 1 %, administered: 05/03/2017 9:24:00 PM Bupivacaine-Epinephrine [Injection] Injection 0.5 %, administered: 05/03/2017 9:24:00 PM Penicillin V Potassium [PO] PO 500 mg, administered: 05/03/2017 9:39:00 PM [id number] PERTUSSIS [IM] IM 0.5 mL, administered: 05/03/2017 9:35:00 PM The following Medications were prescribed to the patient: Penicillin V 500 mg: take 1 tab orally every 12 hours for 10 days. Dispense twenty (20). No refills. -- Trevor Garcia Dr. [place] 5 mg / 325 mg tablets: take 1 orally every 6 hours as needed for pain. Dispense twelve (12). No refill. Substitution is permissible. -- Trevor Garcia Dr.
--- NOTE | 2017-05-04 08:51 | ED DISCHARGE INSTRUCTIONS ---
Patient: SOLOMON GUEVARA General Instructions [facility] VisitID: [id number] [place] [address] 26y, F Registration Date/Time: 05/03/2017 Dental caries (localized) (acute right maxillary molars). Periapical dental abscess (right maxillary). right facial pain, acute. INSTRUCTIONS Warnings: GENERAL WARNINGS: Return or contact your physician immediately if your condition worsens or changes unexpectedly, if not improving as expected, or if other problems arise. Specifically return if pain, vomiting, bleeding, breathing difficulty or fever. Prescription Medications: Penicillin V 500 mg: take 1 tab orally every 12 hours for 10 days. Dispense twenty (20). No refills. Barton 5 mg / 325 mg tablets: take 1 orally every 6 hours as needed for pain. Dispense twelve (12). No refill. Substitution is permissible. Follow-up: Return to the emergency department as needed. Follow up with a dentist. Reason for referral: as soon as possible for follow up. Summary of care provided to patient via paper. Follow up with your doctor in three days. Reason for referral: recheck today's concerns. Summary of care provided to patient via paper. Screening today revealed the patient's blood pressure to be in the normal range. The patient should follow up with a primary care provider for blood pressure management. Understanding of the discharge instructions verbalized by patient. ADDITIONAL INFORMATION Dental Cavity A dental cavity is a pit or crater in the enamel surface of the tooth. This exposes the sensitive inner layer of the tooth and causes pain. If untreated, the cavity will get bigger and may cause an infection or abscess in the root of the tooth. An infection in the tooth is a much more serious problem and may require a root canal or removal of the entire tooth. The tooth pain may be made worse by drinking hot or cold fluids. It may spread from the tooth to the ear or jaw on the same side. Home Care: Avoid hot and cold foods, and liquids since your tooth may be sensitive to temperature changes. If your tooth is chipped or cracked, or if there is a large open cavity, apply OIL OF CLOVES (available nunh-nco-ywmvioz in drug stores) directly to the tooth to reduce pain. Some pharmacies carry an okjd-ppo-mhmjeak "toothache kit." This contains oil of cloves and a paste, which can be applied over the exposed tooth to decrease sensitivity. An ice pack on your jaw over the sore area may help to reduce pain. You may use acetaminophen (Tylenol) or ibuprofen (Motrin, Advil) to control pain, unless another pain medicine was prescribed. [ NOTE: If you have liver disease or ever had a stomach ulcer, talk with your doctor before using these medicines.] If you have signs of an infection, an antibiotic will be given. Take it as directed. Follow-Up with your dentist as directed. Although your pain may go away with the treatment given, only a dentist can fully evaluate and treat this problem to prevent further tooth damage. Get Prompt Medical Attention if any of the following occur: Redness or swelling of the face Pain worsens or spreads to the neck Fever over 100.5 F (38C) Unusual drowsiness; headache or stiff neck; weakness or fainting Pus drains from the tooth or gum Difficulty swallowing or breathing Dental Abscess A dental abscess is an infection of the tooth socket. It often starts with a crack or cavity in the tooth. A pocket of pus forms between the tooth and the bone. The infection causes pain and swelling of the gum, cheek or jaw. The pain is often made worse by drinking hot or cold fluids, or biting on hard foods. Pain may be felt in the facial sinus or in the ear. A severe infection can interfere with swallowing and breathing. In the emergency department or clinic, you will be started on an antibiotic. However, final treatment requires drainage of the pus. This can be done by removing the tooth or performing a root canal. A root canal is done by an oral surgeon and involves drilling an opening in the tooth to drain the pus. After the infection has healed, a crown is placed over the tooth. Home care The following guidelines will help you care for your abscess at home: Avoid hot and cold foods and liquids since your tooth may be sensitive to temperature changes. If your tooth is chipped or cracked, or if there is a large open cavity, applyoil of cloves(available cawu-lrx-ownaixx in drug stores) directly to the tooth to reduce pain. Some pharmacies carry an pdlz-ima-dwjlody "toothache kit". This contains oil of cloves and a paste, which can be applied over the exposed tooth to decrease sensitivity. Apply an ice pack (ice cubes in a plastic bag, wrapped in a towel) over the injured area for 20 minutes every 12 hours the first day for pain relief. Continue this 34 times a day until the pain and swelling goes away. You may use acetaminophen or ibuprofen to control pain, unless another medicine was prescribed. If you have chronic liver or kidney disease or ever had a stomach ulcer or GI bleeding, talk with your doctor before using these medicines. An antibiotic will be prescribed. Take it as directed until completed, even if you are feeling better sooner. Follow-up care Follow up as directed with a dentist or oral surgeon. Even though your pain may improve with the treatment given today, only a dentist or oral surgeon can provide full treatment for this problem. When to seek medical care Get prompt medical attention or contact your doctor if any of the following occur: Your face or eyelid becomes swollen or red Pain worsens or spreads to the neck Fever over 100.4F (38.0C) Unusual drowsiness; headache or stiff neck; weakness, or fainting Pus drains from the gum or tooth Difficulty talking, swallowing or breathing Unable to open your mouth wide Penicillin V Potassium Oral tablet What is this medicine? PENICILLIN V (pen i SILL in V) is a penicillin antibiotic. It is used to treat certain kinds of bacterial infections. It will not work for colds, flu, or other viral infections. How should I use this medicine? Take this medicine by mouth with a full glass of water. Follow the directions on the prescription label. Take your medicine at regular intervals. Do not take your medicine more often than directed. Take all of your medicine as directed even if you think your are better. Do not skip doses or stop your medicine early. Talk to your tumbler dyeing machine operator regarding the use of this medicine in children. While this drug may be prescribed for selected conditions, precautions do apply. What side effects may I notice from receiving this medicine? Side effects that you should report to your doctor or health clinical care leader as soon as possible: allergic reactions like skin rash or hives, swelling of the face, lips, or tongue breathing problems fever new symptoms of infection redness, blistering, peeling or loosening of the skin, including inside the mouth unusually weak or tired Side effects that usually do not require medical attention (report to your doctor or health clinical care leader if they continue or are bothersome): diarrhea headache nausea, vomiting sore mouth or tongue stomach upset What may interact with this medicine? control pills methotrexate other antibiotics probenecid some vaccines What if I miss a dose? If you miss a dose, take it as soon as you can. If it is almost time for your next dose, take only that dose. Do not take double or extra doses. Where should I keep my medicine? Keep out of the reach of children. Store at room temperature between 15 and 30 degrees C (59 and 86 degrees F). Keep container tightly closed. Throw away any unused medicine after the expiration date. What should I tell my health care provider before I take this medicine? They need to know if you have any of these conditions: asthma bowel disease, like colitis eczema kidney disease an unusual or allergic reaction to penicillin, cephalosporins, other antibiotics or medicines, foods, tartrazine or other dyes, or preservatives or trying to get breast-feeding What should I watch for while using this medicine? Tell your doctor or health clinical care leader if your symptoms do not improve. Do not treat diarrhea with over the counter products. Contact your doctor if you have diarrhea that lasts more than 2 days or if it is severe and watery. If you have diabetes, you may get a false-positive result for sugar in your urine. Check with your doctor or health clinical care leader. control pills may not work properly while you are taking this medicine. Talk to your doctor about using an extra method of control. Hydrocodone Bitartrate, Acetaminophen Oral tablet What is this medicine? ACETAMINOPHEN; HYDROCODONE (a set a BENJAMIN chen fen; flavia droe KOE done) is a pain reliever. It is used to treat mild to moderate pain. How should I use this medicine? Take this medicine by mouth. Swallow it with a full glass of water. Follow the directions on the prescription label. If the medicine upsets your stomach, take the medicine with food or milk. Do not take more than you are told to take. Talk to your tumbler dyeing machine operator regarding the use of this medicine in children. This medicine is not approved for use in children. What side effects may I notice from receiving this medicine? Side effects that you should report to your doctor or health clinical care leader as soon as possible: allergic reactions like skin rash, itching or hives, swelling of the face, lips, or tongue breathing problems confusion feeling faint or lightheaded, falls stomach pain yellowing of the eyes or skin Side effects that usually do not require medical attention (report to your doctor or health clinical care leader if they continue or are bothersome): nausea, vomiting stomach upset What may interact with this medicine? alcohol antihistamines isoniazid medicines for depression, anxiety, or psychotic disturbances medicines for sleep muscle relaxants naltrexone narcotic medicines (opiates) for pain phenobarbital ritonavir tramadol What if I miss a dose? If you miss a dose, take it as soon as you can. If it is almost time for your next dose, take only that dose. Do not take double or extra doses. Where should I keep my medicine? Keep out of the reach of children. This medicine can be abused. Keep your medicine in a safe place to protect it from theft. Do not share this medicine with anyone. Selling or giving away this medicine is dangerous and against the law. Store at room temperature between 15 and 30 degrees C (59 and 86 degrees F). Protect from light. Keep container tightly closed. Throw away any unused medicine after the expiration date. Discard unused medicine and used packaging carefully. Pets and children can be harmed if they find used or lost packages. What should I tell my health care provider before I take this medicine? They need to know if you have any of these conditions: brain tumor Crohn's disease, inflammatory bowel disease, or ulcerative colitis drink more than 3 alcohol-containing drinks per day drug abuse or addiction head injury heart or circulation problems kidney disease or problems going to the bathroom liver disease lung disease, asthma, or breathing problems an unusual or allergic reaction to acetaminophen, hydrocodone, other opioid analgesics, other medicines, foods, dyes, or preservatives or trying to get breast-feeding What should I watch for while using this medicine? Tell your doctor or health clinical care leader if your pain does not go away, if it gets worse, or if you have new or a different type of pain. You may develop tolerance to the medicine. Tolerance means that you will need a higher dose of the medicine for pain relief. Tolerance is normal and is expected if you take the medicine for a long time. Do not suddenly stop taking your medicine because you may develop a severe reaction. Your body becomes used to the medicine. This does NOT mean you are addicted. Addiction is a behavior related to getting and using a drug for a non-medical reason. If you have pain, you have a medical reason to take pain medicine. Your doctor will tell you how much medicine to take. If your doctor wants you to stop the medicine, the dose will be slowly lowered over time to avoid any side effects. You may get drowsy or dizzy when you first start taking the medicine or change doses. Do not drive, use machinery, or do anything that may be dangerous until you know how the medicine affects you. Stand or sit up slowly. There are different types of narcotic medicines (opiates) for pain. If you take more than one type at the same time, you may have more side effects. Give your health care provider a list of all medicines you use. Your doctor will tell you how much medicine to take. Do not take more medicine than directed. Call emergency for help if you have problems breathing. The medicine will cause constipation. Try to have a bowel movement at least every 2 to 3 days. If you do not have a bowel movement for 3 days, call your doctor or health clinical care leader. Too much acetaminophen can be very dangerous. Do not take Tylenol (acetaminophen) or medicines that contain acetaminophen with this medicine. Many non-prescription medicines contain acetaminophen. Always read the labels carefully. You have been given the following additional information: Dental Cavity Tooth Abscess Penicillin V Potassium Oral tablet Hydrocodone Bitartrate, Acetaminophen Oral tablet (Electronically signed by Trevor Garcia Dr. 05/04/2017 8:51)
--- NOTE | 2017-05-04 08:51 | ED MAR SUMMARY ---
..... Medication Administration Record [facility] [address] [place] [address] Patient: SOLOMON GUEVARA Visit ID: [id number] 26y, F Weight: 89.3 kg Height/Length: 58 in BMI: 41.2 ALLERGIES: Ibuprofen Given 21:05/03/2017 Silvana Mancuso R.N. Medication Administered: LIDOCAINE-EPINEPHRINE [INJECTION] (LIDOCAINE-EPINEPHRINE), Dose: 1 % Injection. Medication Ordered: Lidocaine-Epinephrine Injection 1% (place at bedside). Given 21:05/03/2017 Silvana Mancuso R.N. Medication Administered: BUPIVACAINE-EPINEPHRINE [INJECTION] (BUPIVACAINE-EPINEPHRINE), Dose: 0.5 % Injection. Medication Ordered: Bupivacaine-Epinephrine Injection 0.5 % (soln) (NOW). Given 21:05/03/2017 Silvana Mancuso R.N. Medication Administered: SLGUWHT-FVOBHV-IPQEI PERTUSSIS [IM], Dose: 0.5 mL IM. Medication Ordered: Chdbydg-Nklrgo-Tejzb Pertussis IM 0.5 mL (NOW, per protocol). Given 21:39 05/03/2017 Silvana Mancuso R.N. Medication Administered: PENICILLIN V POTASSIUM [PO], Dose: 500 mg PO. Medication Ordered: Penicillin V Potassium PO 500 mg (NOW).
--- NOTE | 2017-05-04 08:51 | ED MED RECONCILIATION SUMMARY ---
Patient: SOLOMON GUEVARA Medication Reconciliation Report [facility] VisitID: [id number] [place] [address] 26y, F Registration Date/Time: 05/03/2017 Weight: 89.3 kg Height/Length: 58 in. BMI: 41.2 ALLERGIES: Ibuprofen The patient's Home Medications are listed below: THE FOLLOWING MEDICATIONS NEED TO BE RECONCILED: Albuterol Sulfate Inhalation Atrovent HFA Inhalation The source(s) of the original Home Medication information: patient The following Medications were given to the patient in the Emergency Department: Lidocaine-Epinephrine [Injection] Injection 1 %, administered: 05/03/2017 9:24:00 PM Bupivacaine-Epinephrine [Injection] Injection 0.5 %, administered: 05/03/2017 9:24:00 PM Penicillin V Potassium [PO] PO 500 mg, administered: 05/03/2017 9:39:00 PM UNINXYI-IEMMYK-DNLUO PERTUSSIS [IM] IM 0.5 mL, administered: 05/03/2017 9:35:00 PM The following Medications were prescribed to the patient: Penicillin V 500 mg: take 1 tab orally every 12 hours for 10 days. Dispense twenty (20). No refills. -- Trevor Garcia Dr. [place] 5 mg / 325 mg tablets: take 1 orally every 6 hours as needed for pain. Dispense twelve (12). No refill. Substitution is permissible. -- Trevor Garcia Dr.
--- NOTE | 2017-05-04 08:51 | ED MAR SUMMARY ---
..... Medication Administration Record [facility] [address] [place] [address] Patient: SOLOMON GUEVARA Visit ID: [id number] 26y, F Weight: 89.3 kg Height/Length: 58 in BMI: 41.2 ALLERGIES: Ibuprofen Given 21:05/03/2017 Silvana Mancuso R.N. Medication Administered: LIDOCAINE-EPINEPHRINE [INJECTION] (LIDOCAINE-EPINEPHRINE), Dose: 1 % Injection. Medication Ordered: Lidocaine-Epinephrine Injection 1% (place at bedside). Given 21:05/03/2017 Silvana Mancuso R.N. Medication Administered: BUPIVACAINE-EPINEPHRINE [INJECTION] (BUPIVACAINE-EPINEPHRINE), Dose: 0.5 % Injection. Medication Ordered: Bupivacaine-Epinephrine Injection 0.5 % (soln) (NOW). Given 21:05/03/2017 Silvana Mancuso R.N. Medication Administered: DUZOAHU-HAKXLL-OCNTA PERTUSSIS [IM], Dose: 0.5 mL IM. Medication Ordered: Ugtuvng-Ducwlx-Aaziq Pertussis IM 0.5 mL (NOW, per protocol). Given 21:39 05/03/2017 Silvana Mancuso R.N. Medication Administered: PENICILLIN V POTASSIUM [PO], Dose: 500 mg PO. Medication Ordered: Penicillin V Potassium PO 500 mg (NOW).
== END 2017-05-03 21:51 | disposition home or self-care (01) ==
LOC: ED SRH 21:04
DX: K04.7 Periapical abscess without sinus (principal); K02.9 Dental caries, unspecified; R51 Headache; Z23 Encounter for immunization; J45.909 Unspecified asthma, uncomplicated; Z79.899 Other long term (current) drug therapy; Z88.6 Allergy status to analgesic agent

== ENCOUNTER 2017-05-06 21:40 | Emergency (ER) | payer OTHER ==
--- NOTE | 2017-05-06 22:21 | ED NURSING NOTES ---
Clinical Report - Nurses [facility] [address] [place] [address] 05/06/2017 21:40 Patient: SOLOMON GUEVARA TRIAGE Triage time 21:50. Acuity: LEVEL 4. Chief Complaint: RIGHT UPPER TOOTHACHE and CHIPPED TOOTH. Alert. No acute distress. --21:54 Magi Shepard R.N. 21:50 05/06/17. BP: 114/74. HR: 97. RR: 0. O2 saturation: 96%. Temp: 98.8 F. Pain level now: 08/02. --21:54 Magi Shepard R.N. 21:50 05/06/17. BP: 114/74. HR: 97. RR: 0. O2 saturation: 96%. Temp: 98.8 F. Pain level now: 08/02. --21:55 Magi Shepard R.N. Weight: 89.3 kg stated. Height/Length: 58 inches Per Patient. BMI: 41.2. --21:53 Magi Shepard R.N. Medications Albuterol Sulfate Inhalation. Atrovent HFA Inhalation. --21:52 Magi Shepard R.N. Medication/allergy information source: the patient. --21:54 Magi Shepard R.N. Allergies Ibuprofen.(angioedema) --21:52 Magi Shepard R.N. History Arrived by private vehicle. Historian: patient. Accompanied by friend. Primary physician (kelvin). This is a new problem. (2 weeks, hurts more since last night). She has had facial pain. 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 PAST MEDICAL HX: Immunizations: up-to-date. Uses an intrauterine device. SOCIAL HX: Light tobacco smoker (cigarette)- less than 1/2 a pack per day. History of drug use: marijuana. Recently used drugs today. No alcohol use. FALL RISK ASSESSMENT: Fall risk assessment completed. No fall risk identified. NUTRITIONAL RISK ASSESSMENT: The nutritional risk assessment revealed no deficiencies. FUNCTIONAL ASSESSMENT: Functional assessment: no impairments noted. LEARNING NEEDS ASSESSMENT: The learning needs assessment revealed no barriers. SKIN INTEGRITY ASSESSMENT: Skin integrity risk assessment completed. No skin integrity risk identified. --21:54 Magi Shepard R.N. PROBLEMS: Dental Abscess. Dental Caries. Costochondritis. Depression. Torticollis. Neck Pain. Bronchitis. Dental Pain. UTI - Urinary Tract Infection. Headache. Developmental Delay. Asthma. --21:52 Magi Shepard R.N. ADDITIONAL SURGERIES: Cholecystectomy. . Traumatic brain injury. --21:52 Magi Shepard R.N. Interventions ID band on patient. To room. --21:54 Magi Shepard R.N. PHYSICAL ASSESSMENT Ambulatory to room. GENERAL / NEURO / PSYCH: Alert. Oriented X 4. Appears anxious. HEENT: Voice within normal limits. Moderate dental tenderness of a single tooth (left upper molar). Mucous membranes are pink. RESPIRATORY: Respirations not labored. CVS: Capillary refill less than 2 seconds. SKIN: Skin is warm and dry. Normal skin turgor. --21:55 Magi Shepard R.N. NURSING PROGRESS NOTES Head of bed elevated. Two patient identifiers checked. Call light placed in reach. Side rails up x 2. Bed placed in lowest position. Brakes of bed on. Patient ready for evaluation. --21:55 Magi Shepard R.N. DISPOSITION / DISCHARGE 22:25 05/06/17. Condition at departure: stable. The goals identified in the patient's plan of care were met. No learning barriers present. Discharge instructions provided and reviewed with the patient. Reviewed warnings (Do not drive while taking sedative medications). Reviewed medication(s) side effects, precautions, dosing and course information. Prescription(s) given to the patient. Reviewed need for increased fluid intake. Patient verbalized understanding. Written instructions provided in Andorran. ( Follow up with your dentist tomorrow as scheduled. Maintain good oral hygiene. Take an anti-inflammatory as needed for swelling and pain. Patient verbalized understanding and had no additional questions at this time.). The patient was discharged by the physician. She was discharged home and accompanied by consumer relations complaint clerk. She left the Emergency Department ambulatory and via private vehicle. Van Cdl Driver driving. FALL RISK ASSESSMENT: Fall risk assessment completed. No fall risk identified. --23:32 Bina Parra 22:25 05/06/17. BP: deferred. HR: deferred. RR: deferred. O2 saturation: deferred. Temp: deferred. Pain level now deferred. --23:32 Bina Parra. Locked/Released at 05/06/2017 23:32 by Bina Parra,
--- NOTE | 2017-05-06 22:21 | ED NURSING NOTES ---
Clinical Report - Nurses [facility] [address] [place] [address] 05/06/2017 21:40 Patient: SOLOMON GUEVARA TRIAGE Triage time 21:50. Acuity: LEVEL 4. Chief Complaint: RIGHT UPPER TOOTHACHE and CHIPPED TOOTH. Alert. No acute distress. --21:54 Magi Shepard R.N. 21:50 05/06/17. BP: 114/74. HR: 97. RR: 0. O2 saturation: 96%. Temp: 98.8 F. Pain level now: 08/02. --21:54 Magi Shepard R.N. 21:50 05/06/17. BP: 114/74. HR: 97. RR: 0. O2 saturation: 96%. Temp: 98.8 F. Pain level now: 08/02. --21:55 Magi Shepard R.N. Weight: 89.3 kg stated. Height/Length: 58 inches Per Patient. BMI: 41.2. --21:53 Magi Shepard R.N. Medications Albuterol Sulfate Inhalation. Atrovent HFA Inhalation. --21:52 Magi Shepard R.N. Medication/allergy information source: the patient. --21:54 Magi Shepard R.N. Allergies Ibuprofen.(angioedema) --21:52 Magi Shepard R.N. History Arrived by private vehicle. Historian: patient. Accompanied by friend. Primary physician (kelvin). This is a new problem. (2 weeks, hurts more since last night). She has had facial pain. 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 PAST MEDICAL HX: Immunizations: up-to-date. Uses an intrauterine device. SOCIAL HX: Light tobacco smoker (cigarette)- less than 1/2 a pack per day. History of drug use: marijuana. Recently used drugs today. No alcohol use. FALL RISK ASSESSMENT: Fall risk assessment completed. No fall risk identified. NUTRITIONAL RISK ASSESSMENT: The nutritional risk assessment revealed no deficiencies. FUNCTIONAL ASSESSMENT: Functional assessment: no impairments noted. LEARNING NEEDS ASSESSMENT: The learning needs assessment revealed no barriers. SKIN INTEGRITY ASSESSMENT: Skin integrity risk assessment completed. No skin integrity risk identified. --21:54 Magi Shepard R.N. PROBLEMS: Dental Abscess. Dental Caries. Costochondritis. Depression. Torticollis. Neck Pain. Bronchitis. Dental Pain. UTI - Urinary Tract Infection. Headache. Developmental Delay. Asthma. --21:52 Magi Shepard R.N. ADDITIONAL SURGERIES: Cholecystectomy. . Traumatic brain injury. --21:52 Magi Shepard R.N. Interventions ID band on patient. To room. --21:54 Magi Shepard R.N. PHYSICAL ASSESSMENT Ambulatory to room. GENERAL / NEURO / PSYCH: Alert. Oriented X 4. Appears anxious. HEENT: Voice within normal limits. Moderate dental tenderness of a single tooth (left upper molar). Mucous membranes are pink. RESPIRATORY: Respirations not labored. CVS: Capillary refill less than 2 seconds. SKIN: Skin is warm and dry. Normal skin turgor. --21:55 Magi Shepard R.N. NURSING PROGRESS NOTES Head of bed elevated. Two patient identifiers checked. Call light placed in reach. Side rails up x 2. Bed placed in lowest position. Brakes of bed on. Patient ready for evaluation. --21:55 Magi Shepard R.N. DISPOSITION / DISCHARGE 22:25 05/06/17. Condition at departure: stable. The goals identified in the patient's plan of care were met. No learning barriers present. Discharge instructions provided and reviewed with the patient. Reviewed warnings (Do not drive while taking sedative medications). Reviewed medication(s) side effects, precautions, dosing and course information. Prescription(s) given to the patient. Reviewed need for increased fluid intake. Patient verbalized understanding. Written instructions provided in Somali. ( Follow up with your dentist tomorrow as scheduled. Maintain good oral hygiene. Take an anti-inflammatory as needed for swelling and pain. Patient verbalized understanding and had no additional questions at this time.). The patient was discharged by the physician. She was discharged home and accompanied by reed worker. She left the Emergency Department ambulatory and via private vehicle. Barback driving. FALL RISK ASSESSMENT: Fall risk assessment completed. No fall risk identified. --23:32 Bina Parra 22:25 05/06/17. BP: deferred. HR: deferred. RR: deferred. O2 saturation: deferred. Temp: deferred. Pain level now deferred. --23:32 Bina Parra. Locked/Released at 05/06/2017 23:32 by Bina Parra,
--- NOTE | 2017-05-06 22:21 | ED CLINICAL REPORT ---
Clinical Report - Physicians/Mid Levels [facility] [address] [place] [address] 05/06/2017 21:40 Patient: SOLOMON GUEVARA Time Seen: 22:18 May 06 2017. Arrived- By private vehicle. Historian- patient. CPT: ER phys charges level 3 (#[id number]). HISTORY OF PRESENT ILLNESS Chief Complaint: DENTAL PAIN. TOOTHACHE. 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 Pain described as moderate. The patient has had toothache and facial pain. Similar symptoms previously: As bad. Recent medical care: The patient was seen recently at this facility (3 days ago). Seen for similar symptoms. Antibiotic and pain med was prescribed. REVIEW OF SYSTEMS No fever, eye discomfort, cough, difficulty breathing or chest pain. No nausea, headache, joint pain or skin rash. All systems otherwise negative, except as recorded above. PAST HISTORY See nurses notes. Dental Abscess. Dental Caries. Costochondritis. Depression. Torticollis. Neck Pain. Bronchitis. Dental Pain. UTI - Urinary Tract Infection. Headache. Developmental Delay. Asthma. --21:52 Magi Shepard R.N. ADDITIONAL SURGERIES: Cholecystectomy. . Traumatic brain injury. Medications: Albuterol Sulfate Inhalation. Atrovent HFA Inhalation. Allergies: Ibuprofen.(angioedema). SOCIAL HISTORY Heavy tobacco smoker (cigarette)- less than 1 pack per day. History of drug use: marijuana. No alcohol use. ADDITIONAL NOTES The nursing notes have been reviewed. PHYSICAL EXAM Vital Signs: 05/06/2017 21:50 BP: 114/74. HR: 97. RR: 0. O2 saturation: 96%. Temp: 98.8 F. Pain level now: 10/10. Appearance: Alert. Patient in mild distress. Head: Normal external inspection. Eyes: Pupils equal, round and reactive to light. Conjunctivae and eyelids normal. ENT: Moderate dental tenderness of a single tooth (upper right third molar). Nose normal. Pharynx normal. Lips normal. Gums normal. Uvula midline. Neck: No adenopathy. CVS: Normal heart rate and rhythm. Heart sounds normal. Pulses normal. No cardiac murmur. Respiratory: No respiratory distress. Skin: Normal skin color. No rash. Neuro: Oriented X 3. No motor deficit. No sensory deficit. PROGRESS AND PROCEDURES Course of Care: Pt with dental appointment tomorrow. Patient/family counseled. Disposition: Discharged. Condition: stable. CLINICAL IMPRESSION Moderate dental pain (impacted right upper wisdom tooth .). INSTRUCTIONS Drink plenty of fluids. Prescription Medications: Hydrocodone/APAP 5mg / 325mg: take 1-2 orally every 6 hours as needed for pain. Dispense ten (10). No refill. Penicillin V 500 mg: take 1 tab orally every 6 hours for 3 days. Dispense fifteen (15). No refills. Follow-up: Follow up with a dentist tomorrow as scheduled. Understanding of the discharge instructions verbalized by patient. (Electronically signed by Nabor Ramirez MD 05/09/2017 8:54)
--- NOTE | 2017-05-06 22:21 | ED CLINICAL REPORT ---
Clinical Report - Physicians/Mid Levels [facility] [address] [place] [address] 05/06/2017 21:40 Patient: SOLOMON GUEVARA Time Seen: 22:18 May 06 2017. Arrived- By private vehicle. Historian- patient. CPT: ER phys charges level 3 (#[id number]). HISTORY OF PRESENT ILLNESS Chief Complaint: DENTAL PAIN. TOOTHACHE. 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 Pain described as moderate. The patient has had toothache and facial pain. Similar symptoms previously: As bad. Recent medical care: The patient was seen recently at this facility (3 days ago). Seen for similar symptoms. Antibiotic and pain med was prescribed. REVIEW OF SYSTEMS No fever, eye discomfort, cough, difficulty breathing or chest pain. No nausea, headache, joint pain or skin rash. All systems otherwise negative, except as recorded above. PAST HISTORY See nurses notes. Dental Abscess. Dental Caries. Costochondritis. Depression. Torticollis. Neck Pain. Bronchitis. Dental Pain. UTI - Urinary Tract Infection. Headache. Developmental Delay. Asthma. --21:52 Magi Shepard R.N. ADDITIONAL SURGERIES: Cholecystectomy. . Traumatic brain injury. Medications: Albuterol Sulfate Inhalation. Atrovent HFA Inhalation. Allergies: Ibuprofen.(angioedema). SOCIAL HISTORY Heavy tobacco smoker (cigarette)- less than 1 pack per day. History of drug use: marijuana. No alcohol use. ADDITIONAL NOTES The nursing notes have been reviewed. PHYSICAL EXAM Vital Signs: 05/06/2017 21:50 BP: 114/74. HR: 97. RR: 0. O2 saturation: 96%. Temp: 98.8 F. Pain level now: 10/10. Appearance: Alert. Patient in mild distress. Head: Normal external inspection. Eyes: Pupils equal, round and reactive to light. Conjunctivae and eyelids normal. ENT: Moderate dental tenderness of a single tooth (upper right third molar). Nose normal. Pharynx normal. Lips normal. Gums normal. Uvula midline. Neck: No adenopathy. CVS: Normal heart rate and rhythm. Heart sounds normal. Pulses normal. No cardiac murmur. Respiratory: No respiratory distress. Skin: Normal skin color. No rash. Neuro: Oriented X 3. No motor deficit. No sensory deficit. PROGRESS AND PROCEDURES Course of Care: Pt with dental appointment tomorrow. Patient/family counseled. Disposition: Discharged. Condition: stable. CLINICAL IMPRESSION Moderate dental pain (impacted right upper wisdom tooth .). INSTRUCTIONS Drink plenty of fluids. Prescription Medications: Hydrocodone/APAP 5mg / 325mg: take 1-2 orally every 6 hours as needed for pain. Dispense ten (10). No refill. Penicillin V 500 mg: take 1 tab orally every 6 hours for 3 days. Dispense fifteen (15). No refills. Follow-up: Follow up with a dentist tomorrow as scheduled. Understanding of the discharge instructions verbalized by patient. (Electronically signed by Nabor Ramirez MD 05/09/2017 8:54)
--- NOTE | 2017-05-09 08:54 | ED DISCHARGE INSTRUCTIONS ---
Patient: SOLOMON GUEVARA General Instructions [facility] VisitID: [id number] [place] [address] 26y, F Registration Date/Time: 05/06/2017 Moderate dental pain (impacted right upper wisdom tooth .). INSTRUCTIONS Drink plenty of fluids. Prescription Medications: Hydrocodone/APAP 5mg / 325mg: take 1-2 orally every 6 hours as needed for pain. Dispense ten (10). No refill. Penicillin V 500 mg: take 1 tab orally every 6 hours for 3 days. Dispense fifteen (15). No refills. Follow-up: Follow up with a dentist tomorrow as scheduled. Understanding of the discharge instructions verbalized by patient. ADDITIONAL INFORMATION Dental Pain A crack or cavity in the tooth, which exposes the sensitive inner area of the tooth can cause tooth pain. An infection in the gum or the root of the tooth can cause pain and swelling. The pain is often made worse by drinking hot or cold fluids, or biting on hard foods. Pain may spread from the tooth to the ear or jaw on the same side. Home Care: Avoid hot and cold foods and liquids since your tooth may be sensitive to temperature changes. If your tooth is chipped or cracked, or if there is a large open cavity, apply OIL OF CLOVES (available [id number]-dae-wxchlqy in drug stores) directly to the tooth to reduce pain. Some pharmacies carry an lkdw-qpd-klsizay "toothache kit." This contains a paste, which can be applied over the exposed tooth to decrease sensitivity. A cold pack on your jaw over the sore area may help reduce pain. You may use acetaminophen (Tylenol) or ibuprofen (Motrin, Advil) to control pain, unless another medicine was prescribed. [ NOTE: If you have chronic liver or kidney disease or ever had a stomach ulcer or GI bleeding, talk with your doctor before using these medicines.] If you have signs of an infection, an antibiotic will be given. Take it as directed. Follow-Up as directed with a dentist. Your pain may go away with the treatment given. However, only a dentist can fully evaluate and treat the cause and prevent the pain from coming back again. TOOTHACHE IS A SIGN OF DISEASE IN YOUR TOOTH AND SHOULD BE EXAMINED AND TREATED BY A DENTIST. Get Prompt Medical Attention if any of the following occur: Your face becomes swollen or red Pain worsens or spreads to the neck Fever over 100.4 F (38.0 C) Unusual drowsiness; headache or stiff neck; weakness or fainting Pus drains from the tooth Difficulty swallowing or breathing Hydrocodone Bitartrate, Acetaminophen Oral tablet What is this medicine? ACETAMINOPHEN; HYDROCODONE (a set a BENJAMIN chen fen; flavia droe KOE done) is a pain reliever. It is used to treat mild to moderate pain. How should I use this medicine? Take this medicine by mouth. Swallow it with a full glass of water. Follow the directions on the prescription label. If the medicine upsets your stomach, take the medicine with food or milk. Do not take more than you are told to take. Talk to your rougher machine operator regarding the use of this medicine in children. This medicine is not approved for use in children. What side effects may I notice from receiving this medicine? Side effects that you should report to your doctor or health acute care nursing assistant as soon as possible: allergic reactions like skin rash, itching or hives, swelling of the face, lips, or tongue breathing problems confusion feeling faint or lightheaded, falls stomach pain yellowing of the eyes or skin Side effects that usually do not require medical attention (report to your doctor or health acute care nursing assistant if they continue or are bothersome): nausea, vomiting stomach upset What may interact with this medicine? alcohol antihistamines isoniazid medicines for depression, anxiety, or psychotic disturbances medicines for sleep muscle relaxants naltrexone narcotic medicines (opiates) for pain phenobarbital ritonavir tramadol What if I miss a dose? If you miss a dose, take it as soon as you can. If it is almost time for your next dose, take only that dose. Do not take double or extra doses. Where should I keep my medicine? Keep out of the reach of children. This medicine can be abused. Keep your medicine in a safe place to protect it from theft. Do not share this medicine with anyone. Selling or giving away this medicine is dangerous and against the law. Store at room temperature between 15 and 30 degrees C (59 and 86 degrees F). Protect from light. Keep container tightly closed. Throw away any unused medicine after the expiration date. Discard unused medicine and used packaging carefully. Pets and children can be harmed if they find used or lost packages. What should I tell my health care provider before I take this medicine? They need to know if you have any of these conditions: brain tumor Crohn's disease, inflammatory bowel disease, or ulcerative colitis drink more than 3 alcohol-containing drinks per day drug abuse or addiction head injury heart or circulation problems kidney disease or problems going to the bathroom liver disease lung disease, asthma, or breathing problems an unusual or allergic reaction to acetaminophen, hydrocodone, other opioid analgesics, other medicines, foods, dyes, or preservatives or trying to get breast-feeding What should I watch for while using this medicine? Tell your doctor or health acute care nursing assistant if your pain does not go away, if it gets worse, or if you have new or a different type of pain. You may develop tolerance to the medicine. Tolerance means that you will need a higher dose of the medicine for pain relief. Tolerance is normal and is expected if you take the medicine for a long time. Do not suddenly stop taking your medicine because you may develop a severe reaction. Your body becomes used to the medicine. This does NOT mean you are addicted. Addiction is a behavior related to getting and using a drug for a non-medical reason. If you have pain, you have a medical reason to take pain medicine. Your doctor will tell you how much medicine to take. If your doctor wants you to stop the medicine, the dose will be slowly lowered over time to avoid any side effects. You may get drowsy or dizzy when you first start taking the medicine or change doses. Do not drive, use machinery, or do anything that may be dangerous until you know how the medicine affects you. Stand or sit up slowly. There are different types of narcotic medicines (opiates) for pain. If you take more than one type at the same time, you may have more side effects. Give your health care provider a list of all medicines you use. Your doctor will tell you how much medicine to take. Do not take more medicine than directed. Call emergency for help if you have problems breathing. The medicine will cause constipation. Try to have a bowel movement at least every 2 to 3 days. If you do not have a bowel movement for 3 days, call your doctor or health acute care nursing assistant. Too much acetaminophen can be very dangerous. Do not take Tylenol (acetaminophen) or medicines that contain acetaminophen with this medicine. Many non-prescription medicines contain acetaminophen. Always read the labels carefully. Penicillin V Potassium Oral tablet What is this medicine? PENICILLIN V (pen i SILL in V) is a penicillin antibiotic. It is used to treat certain kinds of bacterial infections. It will not work for colds, flu, or other viral infections. How should I use this medicine? Take this medicine by mouth with a full glass of water. Follow the directions on the prescription label. Take your medicine at regular intervals. Do not take your medicine more often than directed. Take all of your medicine as directed even if you think your are better. Do not skip doses or stop your medicine early. Talk to your rougher machine operator regarding the use of this medicine in children. While this drug may be prescribed for selected conditions, precautions do apply. What side effects may I notice from receiving this medicine? Side effects that you should report to your doctor or health acute care nursing assistant as soon as possible: allergic reactions like skin rash or hives, swelling of the face, lips, or tongue breathing problems fever new symptoms of infection redness, blistering, peeling or loosening of the skin, including inside the mouth unusually weak or tired Side effects that usually do not require medical attention (report to your doctor or health acute care nursing assistant if they continue or are bothersome): diarrhea headache nausea, vomiting sore mouth or tongue stomach upset What may interact with this medicine? control pills methotrexate other antibiotics probenecid some vaccines What if I miss a dose? If you miss a dose, take it as soon as you can. If it is almost time for your next dose, take only that dose. Do not take double or extra doses. Where should I keep my medicine? Keep out of the reach of children. Store at room temperature between 15 and 30 degrees C (59 and 86 degrees F). Keep container tightly closed. Throw away any unused medicine after the expiration date. What should I tell my health care provider before I take this medicine? They need to know if you have any of these conditions: asthma bowel disease, like colitis eczema kidney disease an unusual or allergic reaction to penicillin, cephalosporins, other antibiotics or medicines, foods, tartrazine or other dyes, or preservatives or trying to get breast-feeding What should I watch for while using this medicine? Tell your doctor or health acute care nursing assistant if your symptoms do not improve. Do not treat diarrhea with over the counter products. Contact your doctor if you have diarrhea that lasts more than 2 days or if it is severe and watery. If you have diabetes, you may get a false-positive result for sugar in your urine. Check with your doctor or health acute care nursing assistant. control pills may not work properly while you are taking this medicine. Talk to your doctor about using an extra method of control. You have been given the following additional information: Dental Pain Hydrocodone Bitartrate, Acetaminophen Oral tablet Penicillin V Potassium Oral tablet (Electronically signed by Nabor Ramirez MD 05/09/2017 8:54)
--- NOTE | 2017-05-09 08:54 | ED DISCHARGE INSTRUCTIONS ---
Patient: SOLOMON GUEVARA General Instructions [facility] VisitID: [id number] [place] [address] 26y, F Registration Date/Time: 05/06/2017 Moderate dental pain (impacted right upper wisdom tooth .). INSTRUCTIONS Drink plenty of fluids. Prescription Medications: Hydrocodone/APAP 5mg / 325mg: take 1-2 orally every 6 hours as needed for pain. Dispense ten (10). No refill. Penicillin V 500 mg: take 1 tab orally every 6 hours for 3 days. Dispense fifteen (15). No refills. Follow-up: Follow up with a dentist tomorrow as scheduled. Understanding of the discharge instructions verbalized by patient. ADDITIONAL INFORMATION Dental Pain A crack or cavity in the tooth, which exposes the sensitive inner area of the tooth can cause tooth pain. An infection in the gum or the root of the tooth can cause pain and swelling. The pain is often made worse by drinking hot or cold fluids, or biting on hard foods. Pain may spread from the tooth to the ear or jaw on the same side. Home Care: Avoid hot and cold foods and liquids since your tooth may be sensitive to temperature changes. If your tooth is chipped or cracked, or if there is a large open cavity, apply OIL OF CLOVES (available fkam-gam-riumpox in drug stores) directly to the tooth to reduce pain. Some pharmacies carry an [id number] "toothache kit." This contains a paste, which can be applied over the exposed tooth to decrease sensitivity. A cold pack on your jaw over the sore area may help reduce pain. You may use acetaminophen (Tylenol) or ibuprofen (Motrin, Advil) to control pain, unless another medicine was prescribed. [ NOTE: If you have chronic liver or kidney disease or ever had a stomach ulcer or GI bleeding, talk with your doctor before using these medicines.] If you have signs of an infection, an antibiotic will be given. Take it as directed. Follow-Up as directed with a dentist. Your pain may go away with the treatment given. However, only a dentist can fully evaluate and treat the cause and prevent the pain from coming back again. TOOTHACHE IS A SIGN OF DISEASE IN YOUR TOOTH AND SHOULD BE EXAMINED AND TREATED BY A DENTIST. Get Prompt Medical Attention if any of the following occur: Your face becomes swollen or red Pain worsens or spreads to the neck Fever over 100.4 F (38.0 C) Unusual drowsiness; headache or stiff neck; weakness or fainting Pus drains from the tooth Difficulty swallowing or breathing Hydrocodone Bitartrate, Acetaminophen Oral tablet What is this medicine? ACETAMINOPHEN; HYDROCODONE (a set a BENJAMIN chen fen; flavia droe KOE done) is a pain reliever. It is used to treat mild to moderate pain. How should I use this medicine? Take this medicine by mouth. Swallow it with a full glass of water. Follow the directions on the prescription label. If the medicine upsets your stomach, take the medicine with food or milk. Do not take more than you are told to take. Talk to your lens grinding machine operator regarding the use of this medicine in children. This medicine is not approved for use in children. What side effects may I notice from receiving this medicine? Side effects that you should report to your doctor or health vocational childcare teacher as soon as possible: allergic reactions like skin rash, itching or hives, swelling of the face, lips, or tongue breathing problems confusion feeling faint or lightheaded, falls stomach pain yellowing of the eyes or skin Side effects that usually do not require medical attention (report to your doctor or health vocational childcare teacher if they continue or are bothersome): nausea, vomiting stomach upset What may interact with this medicine? alcohol antihistamines isoniazid medicines for depression, anxiety, or psychotic disturbances medicines for sleep muscle relaxants naltrexone narcotic medicines (opiates) for pain phenobarbital ritonavir tramadol What if I miss a dose? If you miss a dose, take it as soon as you can. If it is almost time for your next dose, take only that dose. Do not take double or extra doses. Where should I keep my medicine? Keep out of the reach of children. This medicine can be abused. Keep your medicine in a safe place to protect it from theft. Do not share this medicine with anyone. Selling or giving away this medicine is dangerous and against the law. Store at room temperature between 15 and 30 degrees C (59 and 86 degrees F). Protect from light. Keep container tightly closed. Throw away any unused medicine after the expiration date. Discard unused medicine and used packaging carefully. Pets and children can be harmed if they find used or lost packages. What should I tell my health care provider before I take this medicine? They need to know if you have any of these conditions: brain tumor Crohn's disease, inflammatory bowel disease, or ulcerative colitis drink more than 3 alcohol-containing drinks per day drug abuse or addiction head injury heart or circulation problems kidney disease or problems going to the bathroom liver disease lung disease, asthma, or breathing problems an unusual or allergic reaction to acetaminophen, hydrocodone, other opioid analgesics, other medicines, foods, dyes, or preservatives or trying to get breast-feeding What should I watch for while using this medicine? Tell your doctor or health vocational childcare teacher if your pain does not go away, if it gets worse, or if you have new or a different type of pain. You may develop tolerance to the medicine. Tolerance means that you will need a higher dose of the medicine for pain relief. Tolerance is normal and is expected if you take the medicine for a long time. Do not suddenly stop taking your medicine because you may develop a severe reaction. Your body becomes used to the medicine. This does NOT mean you are addicted. Addiction is a behavior related to getting and using a drug for a non-medical reason. If you have pain, you have a medical reason to take pain medicine. Your doctor will tell you how much medicine to take. If your doctor wants you to stop the medicine, the dose will be slowly lowered over time to avoid any side effects. You may get drowsy or dizzy when you first start taking the medicine or change doses. Do not drive, use machinery, or do anything that may be dangerous until you know how the medicine affects you. Stand or sit up slowly. There are different types of narcotic medicines (opiates) for pain. If you take more than one type at the same time, you may have more side effects. Give your health care provider a list of all medicines you use. Your doctor will tell you how much medicine to take. Do not take more medicine than directed. Call emergency for help if you have problems breathing. The medicine will cause constipation. Try to have a bowel movement at least every 2 to 3 days. If you do not have a bowel movement for 3 days, call your doctor or health vocational childcare teacher. Too much acetaminophen can be very dangerous. Do not take Tylenol (acetaminophen) or medicines that contain acetaminophen with this medicine. Many non-prescription medicines contain acetaminophen. Always read the labels carefully. Penicillin V Potassium Oral tablet What is this medicine? PENICILLIN V (pen i SILL in V) is a penicillin antibiotic. It is used to treat certain kinds of bacterial infections. It will not work for colds, flu, or other viral infections. How should I use this medicine? Take this medicine by mouth with a full glass of water. Follow the directions on the prescription label. Take your medicine at regular intervals. Do not take your medicine more often than directed. Take all of your medicine as directed even if you think your are better. Do not skip doses or stop your medicine early. Talk to your lens grinding machine operator regarding the use of this medicine in children. While this drug may be prescribed for selected conditions, precautions do apply. What side effects may I notice from receiving this medicine? Side effects that you should report to your doctor or health vocational childcare teacher as soon as possible: allergic reactions like skin rash or hives, swelling of the face, lips, or tongue breathing problems fever new symptoms of infection redness, blistering, peeling or loosening of the skin, including inside the mouth unusually weak or tired Side effects that usually do not require medical attention (report to your doctor or health vocational childcare teacher if they continue or are bothersome): diarrhea headache nausea, vomiting sore mouth or tongue stomach upset What may interact with this medicine? control pills methotrexate other antibiotics probenecid some vaccines What if I miss a dose? If you miss a dose, take it as soon as you can. If it is almost time for your next dose, take only that dose. Do not take double or extra doses. Where should I keep my medicine? Keep out of the reach of children. Store at room temperature between 15 and 30 degrees C (59 and 86 degrees F). Keep container tightly closed. Throw away any unused medicine after the expiration date. What should I tell my health care provider before I take this medicine? They need to know if you have any of these conditions: asthma bowel disease, like colitis eczema kidney disease an unusual or allergic reaction to penicillin, cephalosporins, other antibiotics or medicines, foods, tartrazine or other dyes, or preservatives or trying to get breast-feeding What should I watch for while using this medicine? Tell your doctor or health vocational childcare teacher if your symptoms do not improve. Do not treat diarrhea with over the counter products. Contact your doctor if you have diarrhea that lasts more than 2 days or if it is severe and watery. If you have diabetes, you may get a false-positive result for sugar in your urine. Check with your doctor or health vocational childcare teacher. control pills may not work properly while you are taking this medicine. Talk to your doctor about using an extra method of control. You have been given the following additional information: Dental Pain Hydrocodone Bitartrate, Acetaminophen Oral tablet Penicillin V Potassium Oral tablet (Electronically signed by Nabor Ramirez MD 05/09/2017 8:54)
--- NOTE | 2017-05-09 08:55 | ED MED RECONCILIATION SUMMARY ---
Patient: SOLOMON GUEVARA Medication Reconciliation Report [facility] VisitID: [id number] [address] [place] [address] 26y, F Registration Date/Time: 05/06/2017 Weight: 89.3 kg Height/Length: 58 in. BMI: 41.2 ALLERGIES: Ibuprofen The patient's Home Medications are listed below: THE FOLLOWING MEDICATIONS NEED TO BE RECONCILED: Albuterol Sulfate Inhalation Atrovent HFA Inhalation The source(s) of the original Home Medication information: patient The following Medications were given to the patient in the Emergency Department: None. The following Medications were prescribed to the patient: Hydrocodone/APAP 5mg / 325mg: take 1-2 orally every 6 hours as needed for pain. Dispense ten (10). No refill. -- Nabor Ramirez MD Penicillin V 500 mg: take 1 tab orally every 6 hours for 3 days. Dispense fifteen (15). No refills. -- Nabor Ramirez MD
--- NOTE | 2017-05-09 08:55 | ED MAR SUMMARY ---
..... Medication Administration Record [facility] [address] [place], [place] [id number] Patient: SOLOMON GUEVARA Visit ID: [id number] 26y, F Weight: 89.3 kg Height/Length: 58 in BMI: 41.2 ALLERGIES: Ibuprofen
--- NOTE | 2017-05-09 08:55 | ED MAR SUMMARY ---
..... Medication Administration Record [facility] [address] [place] [place], [place] [id number] Patient: SOLOMON GUEVARA Visit ID: [id number] 26y, F Weight: 89.3 kg Height/Length: 58 in BMI: 41.2 ALLERGIES: Ibuprofen
--- NOTE | 2017-05-09 08:55 | ED MED RECONCILIATION SUMMARY ---
Patient: SOLOMON GUEVARA Medication Reconciliation Report [facility] VisitID: [id number] [address] [place] [address] 26y, F Registration Date/Time: 05/06/2017 Weight: 89.3 kg Height/Length: 58 in. BMI: 41.2 ALLERGIES: Ibuprofen The patient's Home Medications are listed below: THE FOLLOWING MEDICATIONS NEED TO BE RECONCILED: Albuterol Sulfate Inhalation Atrovent HFA Inhalation The source(s) of the original Home Medication information: patient The following Medications were given to the patient in the Emergency Department: None. The following Medications were prescribed to the patient: Hydrocodone/APAP 5mg / 325mg: take 1-2 orally every 6 hours as needed for pain. Dispense ten (10). No refill. -- Nabor Ramirez MD Penicillin V 500 mg: take 1 tab orally every 6 hours for 3 days. Dispense fifteen (15). No refills. -- Nabor Ramirez MD
== END 2017-05-06 22:25 | disposition home or self-care (01) ==
LOC: ED SRH 21:40
DX: K01.1 Impacted teeth (principal); K08.89 Other specified disorders of teeth and supporting structures; J45.909 Unspecified asthma, uncomplicated; Z79.899 Other long term (current) drug therapy; F17.210 Nicotine dependence, cigarettes, uncomplicated; Z88.6 Allergy status to analgesic agent